=== PATIENT | male | born 1970 | race Caucasian/White ===

== ENCOUNTER 2022-09-18 09:53 | Emergency (ER) | payer OTHER, SELFPAY ==
--- NOTE | ~2022-09-18 | XR_ITS ---
EXAMINATION: XR CHEST CLINICAL INFORMATION: Cough. COMPARISON: None TECHNIQUE: Frontal view of the chest was obtained. FINDINGS: No focal airspace opacity, pleural effusion or pneumothorax. No significant cardiomediastinal contour abnormality. No acute osseous abnormalities. The visualized upper abdomen is within normal limits. XR/XR chest 1V IMPRESSION: No acute cardiopulmonary findings.
--- NOTE | 2022-09-18 10:06 | ECG_ITS ---
Test Reason : chest pain Blood Pressure : / mmHG Vent. Rate : 076 BPM Atrial Rate : 076 BPM P-R Int : 152 ms QRS Dur : 094 ms QT Int : 382 ms P-R-T Axes : 047 004 035 degrees QTc Int : 429 ms Normal sinus rhythm Septal infarct , age undetermined Abnormal ECG No previous ECGs available Referred By: Generic ED Physician Electronically Signed By:Avi Soares
[2022-09-18 11:00] VITALS: BP 116/75; PULSE 66; RESP 16; TEMP 36.4; O2SAT 99; BMI 31.7
[2022-09-18 11:27] LABS: MANUAL DIFF FLAG NO
[2022-09-18 11:28] LABS: Basophils Absolute Auto 0.1 X10*3/uL (0.0-0.2); Basophils Percent Auto 1.3 % (0-2); Eosinophils Absolute Auto 0.3 X10*3/uL (0.0-0.4); Eosinophils Percent Auto 5.6 % (0-4); Hemoglobin 14.9 g/dl (14.0-18.0); Imm Gran Abs Auto 0.03 X10*3/uL (0.00-0.03); Imm Gran Pct Auto 0.6 % (0.0-0.4); Lymphocytes Absolute Auto 1.4 X10*3/uL (1.2-4.9); Lymphocytes Percent Auto 26.7 % (20-40); Mean Corpuscular HGB Conc 33.9 g/dl (31.0-36.0); Mean Corpuscular Hemoglobin 30.2 pg (27.0-33.0); Mean Corpuscular Volume 89.1 fL (80.0-98.0); Mean Platelet Volume 8.9 fL (9.4-12.4); Monocytes Absolute Auto 0.4 X10*3/uL (0.1-1.2); Neutrophils Absolute Auto 3.1 x10*3/uL (2.0-8.3); Neutrophils Percent Auto 57.8 % (45-73); Platelet Count 239 X10*3/uL (160-400); Red Blood Count 4.94 X10*6/uL (4.60-5.80); Red Cell Distribution Width 12.9 % (11.0-16.0); White Blood Count 5.4 X10*3/uL (4.8-10.8)
[2022-09-18 11:54] LABS: B Type Natriuretic Peptide 16 pg/mL (<100)
[2022-09-18 12:21] LABS: Anion Gap 10 (12-20); Blood Urea Nitrogen 10 mg/dL (9-16); Calcium 8.7 mg/dL (8.4-10.2); Carbon Dioxide 29 mmol/L (22-29); Chloride 106 mmol/L (96-108); Creatinine Clr Calc Pharmacy 102.9; Estimated Glomerular Filt Rate > 60; Glucose Random 99 mg/dL (60-115); Potassium 4.3 mmol/L (3.3-5.1); Sodium 141 mmol/L (135-145)
--- NOTE | 2022-09-18 12:50 | PC.NURSE ---
Patient with primary complaint of bilateral leg pain non pitting edema and redness noted patient also complaint of chest pain not exacerbated with inspiration/expiration LS clear AOx 4 neuros intact. Patient ambulatory at baseline no confusion noted IV access obtained will CTM
[2022-09-18 13:51] LABS: COVID-19 Test Negative (Negative); IDNOW Serial# BCCEAD1C
[2022-09-18 13:59] LABS: Alanine Aminotransferase 23 U/L (0-40); Alkaline Phosphatase 77 U/L (39-117); Aspartate Amino Transferase 14 U/L (5-37); Bilirubin Direct 0.2 mg/dL (0.0-0.5); Bilirubin Total 0.5 mg/dL (0.0-1.0); Total Protein 6.7 g/dL (6.5-8.0)
--- NOTE | 2022-09-18 14:03 | ED_ITS ---
HPI - General Adult General Chief complaint: General Medical Stated complaint: Chest pain/SOB/Rash on both legs Time Seen by Provider: 09/18/22 12:47 Source: patient Mode of arrival: ambulatory History of Present Illness HPI narrative: 52-year-old male without significant past medical history presents with complaints of bilateral lower extremity swelling and significant lower extremity pain with itching that is been ongoing for approximately 6 months and not associated with any fevers, chills. Patient denies any alcohol or drug use. Patient also describes bilateral upper extremity tingling as well as shortness of breath and chest pain. He is currently being evaluated for prostate and has had biopsies approximately 2 weeks ago and has been placed on tamsulosin which is his only prescription medication. Related Data Allergies Allergy/AdvReac Type Severity Reaction Status Date / Time No Known Allergies Allergy Verified 09/18/22 10:59 Review of Systems Review of Systems: Pertinent positives and negatives as stated in [facility] Past Medical History Source: nursing notes reviewed Social History Social History Alcohol intake: current Alcohol intake frequency: 0-2 drinks per day Smoked in Last 30 Days: No Use of substances other than those prescribed or required for medical reasons: No Advance Directives: No Advance Directives Information Provided: Yes Physical Exam ED Vital Signs: Vital Signs - 24 hr 09/18/22 11:00 Temperature 97.5 F Pulse Rate 66 Respiratory Rate 16 Blood Pressure 116/75 Pulse Oximetry 99 Oxygen Delivery Method Room Air BMI result Body Mass Index 31.7 VITAL SIGNS: Reviewed. GENERAL: Well developed, well nourished, appears anxious HEAD: Normocephalic/atraumatic EYES: PERRLA, EOMI EARS: Ext canals without abnormality OROPHARYNX: no oral lesions noted, posterior pharynx clear NECK: Supple, no adenopathy LUNGS: Normal breath sounds. No adventitious sounds or accessory muscle use. SpO2<99> CARDIOVASCULAR: Regular rate and rhythm without noted murmurs ABDOMEN: Soft, non-tender, non-distended with bowel sounds. MUSCULOSKELETAL: No tenderness, deformities, or effusions noted on gross ins pection. EXTREMITIES: No cyanosis, clubbing or edema; BILATERAL LOWER EXTREMITY: Compartments are soft there is no pitting edema, there is obvious scratching to the anterior component. SKIN: Inspection of the skin reveals no rashes NEUROLOGIC: Alert and oriented x 4. Strength and sensation to light touch were grossly intact x 4. Medical Decision Making Medical Decision Making [facility] Narrative: 52-year-old male with what appears to be some anxiety, will evaluate with the expanse symptoms for any infection, anemia, electrolyte abnormalities. The rash to the bilateral lower extremities appears to be eczematous in nature. I have reviewed patient's entire workup and did my interpretation there are no acute findings to better explain patient's presentation. He does not appear to be overtly fluid overloaded, there are no cardiopulmonary findings or electrolyte abnormalities, CPK is within normal limits.All results discussed with patient at bedside and he is otherwise discharged home in stable condition with strict instructions to follow-up with his primary care provider for additional investigations as indicated. Differential Diagnosis Differential Diagnoses: The differential diagnosis associated with the presentation includes Please see the discussion above Lab Data [facility] Lab Attestation statement: I reviewed the patient's lab results. Please see discussion above 09/18/22 11:22 09/18/22 12:00 Labs: Lab Results 09/18/22 09/18/22 09/18/22 Range/Units 11:22 11:23 12:00 WBC 5.4 (4.8-10.8) X10*3/uL RBC 4.94 (4.60-5.80) X10*6/uL Hgb 14.9 (14.0-18.0) g/dl Hct 44.0 (42.0-52.0) % MCV 89.1 (80.0-98.0) fL MCH 30.2 (27.0-33.0) pg MCHC 33.9 (31.0-36.0) g/dl RDW 12.9 (11.0-16.0) % Plt Count 239 (160-400) X10*3/uL MPV 8.9 L (9.4-12.4) fL Immature Gran % (Auto) 0.6 H (0.0-0.4) % Neut % (Auto) 57.8 (45-73) % Lymph % (Auto) 26.7 (20-40) % [place] % (Auto) 8.0 (2-11) % Eos % (Auto) 5.6 H (0-4) % Baso % (Auto) 1.3 (0-2) % Lymph # (Auto) 1.4 (1.2-4.9) X10*3/uL [place] # (Auto) 0.4 (0.1-1.2) X10*3/uL Eos # (Auto) 0.3 (0.0-0.4) X10*3/uL Baso # (Auto) 0.1 (0.0-0.2) X10*3/uL Abs Immat Gran (auto) 0.03 (0.00-0.03) X10*3/uL Absolute Neuts (auto) 3.1 (2.0-8.3) x10*3/uL Absolute Nucleated RBC 0.000 (0.0-0.012) X10*3/uL Nucleated RBC % (auto) 0.0 (0.0-0.2) /100WBC Sodium 141 (135-145) mmol/L Potassium 4.3 (3.3-5.1) mmol/L Chloride 106 (96-108) mmol/L Carbon Dioxide 29 (22-29) mmol/L Anion Gap 10 L (12-20) BUN 10 (9-16) mg/dL Creatinine 0.82 (0.5-1.4) mg/dL Estim Creat Clear Calc 102.9 Estimated GFR > 60 Random Glucose 99 (60-115) mg/dL Calcium 8.7 (8.4-10.2) mg/dL Total Bilirubin 0.5 (0.0-1.0) mg/dL Direct Bilirubin 0.2 (0.0-0.5) mg/dL AST 14 (5-37) U/L ALT 23 (0-40) U/L Alkaline Phosphatase 77 (39-117) U/L Total Creatine Kinase 84 (38-174) U/L Troponin I High Sens (<3.5-35.0) ng/L B-Natriuretic Peptide 16 (<100) pg/mL Total Protein 6.7 (6.5-8.0) g/dL Albumin 4.0 (3.5-5.0) g/dL COVID-19 (JEANMARIE) (Negative) COVID-19 Clin Com 09/18/22 09/18/22 Range/Units 13:33 15:07 WBC (4.8-10.8) X10*3/uL RBC (4.60-5.80) X10*6/uL Hgb (14.0-18.0) g/dl Hct (42.0-52.0) % MCV (80.0-98.0) fL MCH (27.0-33.0) pg MCHC (31.0-36.0) g/dl RDW (11.0-16.0) % Plt Count (160-400) X10*3/uL MPV (9.4-12.4) fL Immature Gran % (Auto) (0.0-0.4) % Neut % (Auto) (45-73) % Lymph % (Auto) (20-40) % [place] % (Auto) (2-11) % Eos % (Auto) (0-4) % Baso % (Auto) (0-2) % Lymph # (Auto) (1.2-4.9) X10*3/uL [place] # (Auto) (0.1-1.2) X10*3/uL Eos # (Auto) (0.0-0.4) X10*3/uL Baso # (Auto) (0.0-0.2) X10*3/uL Abs Immat Gran (auto) (0.00-0.03) X10*3/uL Absolute Neuts (auto) (2.0-8.3) x10*3/uL Absolute Nucleated RBC (0.0-0.012) X10*3/uL Nucleated RBC % (auto) (0.0-0.2) /100WBC Sodium (135-145) mmol/L Potassium (3.3-5.1) mmol/L Chloride (96-108) mmol/L Carbon Dioxide (22-29) mmol/L Anion Gap (12-20) BUN (9-16) mg/dL Creatinine (0.5-1.4) mg/dL Estim Creat Clear Calc Estimated GFR Random Glucose (60-115) mg/dL Calcium (8.4-10.2) mg/dL Total Bilirubin (0.0-1.0) mg/dL Direct Bilirubin (0.0-0.5) mg/dL AST (5-37) U/L ALT (0-40) U/L Alkaline Phosphatase (39-117) U/L Total Creatine Kinase (38-174) U/L Troponin I High Sens < 3.5 (<3.5-35.0) ng/L B-Natriuretic Peptide (<100) pg/mL Total Protein (6.5-8.0) g/dL Albumin (3.5-5.0) g/dL COVID-19 (JEANMARIE) Negative (Negative) COVID-19 Clin Com See Note Independent Interpretation I performed an independent interpretation of an: EKG Interpretation: Normal sinus rhythm, HR-76, no STEMI, TN/QRS/QTC is within normal limits. Radiology Impression Radiologist Impression: My interpretation is in agreement with radiology's impression of the imaging study. Discharge Plan Discharge Clinical Impression: Localized swelling of both lower legs, Eczema Patient Disposition: Home, Self-Care Instructions: Eczema (ED), Leg Pain (ED) Additional Instructions: 1. Resume all home medications as prescribed. 2. Please review the information regarding eczema. 3. Please follow-up with your primary care provider in the next 1-2 days for re- evaluation and further outpatient management. Please return to the ER if there are any acute changes or additional symptoms.
--- NOTE | 2022-09-18 15:28 | PC.NURSE ---
assumed care of pt rates leg pain 03/28 denies chest pain aox4, no apparent distress, resting quietly pending trop result will CTM
[2022-09-18 15:38] LABS: Troponin-I High Sensitivity < 3.5 ng/L (<3.5-35.0)
--- NOTE | 2022-09-18 16:51 | PC.NURSE ---
discharge instructions given/explained, IV cath tip intact upon removal, ambulates safely/independently, no respiratory distress, able to speak in full sentences, all questions answered
== END 2022-09-18 16:51 | disposition home or self-care (01) ==
PROVIDERS: Emergency Medicine; Emergency Provider Student in an Organized Health Care Education/Training Program
DX: R22.43 Localized swelling, mass and lump, lower limb, bilateral (principal); L30.9 Dermatitis, unspecified; Z20.822 Contact with and (suspected) exposure to COVID-19; M79.605 Pain in left leg; M79.604 Pain in right leg; R06.02 Shortness of breath; Z79.899 Other long term (current) drug therapy
CPT/HCPCS: 36415; 71045; 80048; 80076; 82550; 83880; 84484; 85025; 87635; 93005; 99283; 99284

== ENCOUNTER 2023-03-10 10:28 | Inpatient (IN) | payer OTHER, SELFPAY ==
[2023-03-10] VITALS (7 sets, daily range): BP systolic 101–142; BP diastolic 58–90; PULSE 67–87; RESP 14–18; TEMP 36.5–37.3; O2SAT 97–99; BMI 28.2; BMI 29.0
--- NOTE | ~2023-03-10 | XR_ITS ---
EXAMINATION: XR CHEST CLINICAL INFORMATION: Chest pain. Shortness of breath. COMPARISON: Previous chest x-ray August 2022 TECHNIQUE: Frontal view of the chest was obtained. FINDINGS: No significant abnormality is noted involving the heart, lungs, mediastinum, bony thorax or soft tissues. XR/XR chest 1V IMPRESSION: Unremarkable examination.
--- NOTE | ~2023-03-10 | CT_ITS ---
EXAMINATION: CT ABDOMEN AND PELVIS WITH CONTRAST CLINICAL INFORMATION: Nausea, vomiting, change in bowel habits. COMPARISON: None available. TECHNIQUE: Multidetector volumetric images were obtained from the superior aspect of the liver through the pubic symphysis following administration 85 mL of Omnipaque 350 intravenous contrast. Coronal and sagittal reconstructions. Oral contrast: No. This CT examination was performed using dose optimization techniques as appropriate, variously including the following: *Automated exposure control *Adjustment of mA and/or kV according to patient size (this includes techniques or standardized protocols for targeted exams where dose is matched to indication/reason for exam; i.e. extremities or head) *Use of iterative reconstruction technique DLP: 512 mGy-cm FINDINGS: LUNG BASES: The visualized lung bases are unremarkable. LIVER, GALLBLADDER, AND BILIARY TREE: The liver is normal in size, shape, and attenuation. No focal hepatic lesion or biliary ductal dilatation is present. Status postcholecystectomy. CBD is of normal caliber. PANCREAS: Unremarkable. No acute inflammatory changes. SPLEEN: Unremarkable. ADRENAL GLANDS: Unremarkable. KIDNEYS AND URETERS: Mild right hydronephrosis. The ureter is nondilated. 2 mm nonobstructing calculus in the upper pole calyx. No radiopaque ureteral calculi is identified. Small hypodense lesion in the upper pole left kidney, statistically likely to be a cyst. No followup indicated. 2 mm lower pole nonobstructing calculus. No left-sided hydronephrosis. BLADDER: Unremarkable. GASTROINTESTINAL TRACT: Small hiatal hernia. Stomach is partially distended, limiting evaluation. No small or large bowel obstruction. The large colon is nondistended, limiting evaluation. Apparent wall thickening/prominence of the rectum and rectosigmoid region, with no significant surrounding inflammatory changes. This could be related to lack of distention, proctitis/colitis cannot be excluded. Scattered descending and sigmoid colon diverticulosis. No findings to suggest definite diverticulitis. No acute small bowel inflammatory changes evident. No free fluid. No free air. ABDOMINAL WALL: No significant hernia is appreciated. LYMPH NODES: No lymphadenopathy is identified. VASCULAR: Normal caliber aorta. PELVIC VISCERA: Within normal limits. OSSEOUS STRUCTURES: No acute or suspicious osseous abnormality. CT/CT abdomen pelvis w IV con IMPRESSION: 1. Apparent wall prominence of the rectum and rectosigmoid region, could be related to lack of distention. Proctitis/colitis cannot be excluded. Clinically correlate. Colonic diverticulosis without evidence of diverticulitis. Large colon is nondistended otherwise limiting evaluation. Followup imaging for reassessment as clinically warranted. 2. Mild right hydronephrosis. No radiopaque calculi. Etiology of the hydronephrosis has not been determined. 3. Status post cholecystectomy. 4. Small hiatal hernia. 5. Additional findings and details as above. Fleischner guidelines were followed.
--- NOTE | 2023-03-10 10:50 | ECG_ITS ---
Test Reason : ABDOMINAL PAIN Blood Pressure : / mmHG Vent. Rate : 070 BPM Atrial Rate : 070 BPM P-R Int : 160 ms QRS Dur : 094 ms QT Int : 378 ms P-R-T Axes : 042 022 040 degrees QTc Int : 408 ms Normal sinus rhythm Normal ECG When compared with ECG of 18-SEP-2022 10:20, No significant change was found Referred By: Diego Marie Electronically Signed By:BEE GO MD
--- NOTE | 2023-03-10 10:55 | ED.ABDPAIN ---
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 Patient rates pain greater than 10/10, appears uncomfortable upon history taking. 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 Also complaining of vague chest pain, substernal nonradiating shortness of breath that he contributes this to severe pain. Patient denies numbness, tingling, headache, vision changes, dizziness, weakness at this time. Related Data Home Medications Medication Instructions Recorded Confirmed acetaminophen 500 mg tablet 1,000 mg PO Q6H PRN Pain 03/10/23 03/10/23 mirabegron 50 mg tablet,extended 50 mg PO DAILY 03/10/23 03/10/23 release 24 hr (Myrbetriq) ondansetron HCl 8 mg tablet 8 mg PO BID PRN Nausea 03/10/23 03/10/23 prednisone 20 mg tablet 40 mg PO DAILY 03/10/23 03/10/23 semaglutide (weight loss) 1.7 1.7 mg subcut FR 03/10/23 03/10/23 mg/0.75 mL subcutaneous pen injector (Gamagovy) tamsulosin 0.4 mg capsule 0.4 mg PO DAILY 03/10/23 03/10/23 Previous Rx's Medication Instructions Recorded tramadol 100 mg tablet 100 mg PO Q6H PRN pain #16 tabs 03/12/23 Allergies Allergy/AdvReac Type Severity Reaction Status Date / Time No Known Allergies Allergy Verified 09/18/22 10:59 Review of Systems Review of Systems Constitutional : No Weight loss, + Fever, + Chills, + Fatigue, + Malaise ENT/Mouth : No sore throat, No Rhinorrhea Eyes: No Eye Pain, No Swelling, No Redness Cardiovascular : + Chest Pain, + SOB, No Dyspnea on Exertion, No Orthopnea, No Edema, No Palpitations Respiratory : No Cough, No Sputum, No Wheezing Gastrointestinal : + Nausea, + Vomiting, + Diarrhea, No Constipation, + abdominal Pain, No Hematochezia, No Melena Genitourinary : No Dysuria, No Urinary Frequency, No Hematuria, Musculoskeletal : No joint pain, No Myalgias, No Joint Swelling Skin : No Skin Lesions, No rash Neuro : No Weakness, No Numbness, No Dizziness, No Headache Psych : No Anxiety/Panic, No Depression All other systems reviewed and are negative Yes all other systems are reviewed and are negative COUNT INCLUDES THE [facility] Past Medical History Attestation statement: The following information was validated with the patient. Source: old records reviewed and nursing notes reviewed Medical History Dehydration History of BPH Pre-diabetes Surgical History History of appendectomy Hx of cholecystectomy Social History Social History Household Members Other:: fianc?, daughter Housing: House Do you presently have visiting nurse or other home services: No Alcohol intake: current Alcohol intake frequency: 0-2 drinks per day Patient Tobacco Use Status: Current everyday Tobacco user Tobacco use type: Smokeless Tobacco e-Cigarette/Vaping Use: Currently Using Second Hand Smoke Exposure: No service: No Physical Exam ED Vital Signs: Vital Signs - 24 hr 03/10/23 10:36 03/10/23 13:54 03/10/23 14:48 Temperature 98.0 F 99.1 F Pulse Rate 76 73 77 Respiratory Rate 16 16 14 Blood Pressure 142/75 H 108/65 101/65 Pulse Oximetry 99 97 98 Oxygen Delivery Method Room Air Room Air Room Air BMI result Body Mass Index 28.2 Vital signs stable Appearance: Alert.? Oriented X3.? No acute distress.? Patient appears uncomfortable. Head: Normocephalic, atraumatic, no step-offs or deformities Eyes: Pupils equal, round and reactive to light.? CVS: Normal heart rate and rhythm.? Pulses normal.? Respiratory: No respiratory distress.? Breath sounds normal.? Abdomen: Soft and diffusely tender abdomen. Nondistended. Normoactive bowel sounds. Patient guarding his abdomen..? Skin: Skin warm and dry.? Normal skin color.? Normal skin turgor.? Extremities: No lower extremity edema.? No calf ttp. 5/5 strength to bilateral upper and lower extremities Back: No midline tenderness, no C-spine tenderness, full range of motion, no CVA tenderness bilaterally Neuro: Oriented X 3.? No motor deficit.? No sensory deficit. CN 2-12 intact Course Reevaluation(s) Reevaluation #1: I just received a call from the lab stating patient's lactic acid critically elevated 4.1 , at this time infection suspected 30 cc/kilos bolus has been ordered as well as Zosyn. Remainder of labs pending at this time. CT scan and urine also pending. Time: 11:53 Reevaluation #2: CBC with slight leukocytosis 13.4 with left shift concerning for infection however could be reactive from nausea and vomiting, chemistry pending. Time: 12:10 Reevaluation #3: Patient's chemistry with elevated BUN likely secondary to dehydration. Lactic acid initially 4.1 he was given fluids, antibiotics and it improved to a 0.9. Troponin negative, EKG nonischemic unlikely ACS. CT abdomen and pelvis concerning for colitis versus proctitis, no rectal complaints. Mild right hydronephrosis. No calculi noted. Unclear etiology. Status post cholecystectomy. Small hiatal hernia. I did discuss this case with surgery due to patient's presentation, he is having severe abdominal pain still, general surgeon Dr. Richey recommends hospital admission with surgical consult. He recommends fluids. Discussed this case with hospitalist will admit patient. Time: 15:12 Medical Decision Making Medical Decision Making [facility] Narrative: 52-year-old male presents with nausea, vomiting, diarrhea, abdominal pain severe over the past 2 days but present for the past 2 weeks. Seen at [facility] for the same complaint. Physical exam significant for Soft and diffusely tender abdomen. Nondistended. Normoactive bowel sounds. Patient guarding his abdomen..? Concerns for mesenteric panniculitis based off patient history, possible appendicitis, diverticulitis, cholecystitis vs colitis. No signs of acute abdomen at this time. Unlikely obstruction. Unlikely mesenteric ischemia. Chest pain shortness of breath likely secondary to pain unlikely ACS, unlikely PE. Plan at this time labs, imaging, urine., EKG. Differential Diagnosis Differential Diagnoses: The differential diagnosis associated with the presentation includes Concerns for mesenteric panniculitis based off patient history, possible appendicitis, diverticulitis, cholecystitis vs colitis. No signs of acute abdomen at this time. Unlikely obstruction. Unlikely mesenteric ischemia. Chest pain shortness of breath likely secondary to pain unlikely ACS, unlikely PE. Admission/Observation Consideration of admission/observation: Escalation of care including admission/observation considered Possible Consult Healthcare Provider Management of the patient was discussed with: Hospitalist and Nondestructive Tester (General surgery ) Lab Data [facility] Lab Attestation statement: I reviewed the patient's lab results. 03/11/23 05:28 03/11/23 05:28 Labs: Lab Results 03/10/23 03/10/23 03/10/23 Range/Units 11:30 13:23 13:54 WBC 13.4 H (4.8-10.8) X10*3/uL RBC 5.00 (4.60-5.80) X10*6/uL Hgb 15.3 (14.0-18.0) g/dl Hct 45.1 (42.0-52.0) % MCV 90.2 (80.0-98.0) fL MCH 30.6 (27.0-33.0) pg MCHC 33.9 (31.0-36.0) g/dl RDW 14.0 (11.0-16.0) % Plt Count 316 D (160-400) X10*3/uL MPV 8.5 L (9.4-12.4) fL Immature Gran % (Auto) 0.6 H (0.0-0.4) % Neut % (Auto) 93.6 H (45-73) % Lymph % (Auto) 3.8 L (20-40) % [place] % (Auto) 1.7 L (2-11) % Eos % (Auto) 0.1 (0-4) % Baso % (Auto) 0.2 (0-2) % Lymph # (Auto) 0.5 L (1.2-4.9) X10*3/uL [place] # (Auto) 0.2 (0.1-1.2) X10*3/uL Eos # (Auto) 0.0 (0.0-0.4) X10*3/uL Baso # (Auto) 0.0 (0.0-0.2) X10*3/uL Abs Immat Gran (auto) 0.08 H (0.00-0.03) X10*3/uL Absolute Neuts (auto) 12.5 H (2.0-8.3) x10*3/uL Absolute Nucleated RBC 0.000 (0.0-0.012) X10*3/uL Nucleated RBC % (auto) 0.0 (0.0-0.2) /100WBC Smear Tech's Comments VERIFIED Lactic Acid 4.1 H* (0.5-2.0) mmol/L Lactic Acid F/U @ 2Hr 0.9 (0.5-2.0) mmol/L Troponin I High Sens < 2.7 (<3.5-35.0) ng/L Urine Color Yellow Urine Appearance Clear Urine pH 7.5 (5.0-9.0) Ur Specific [place] >= 1.030 H (1.005-1.025) Urine Protein Negative (Neg-Trace) mg/dL Urine Glucose (UA) Negative (Negative) mg/dL Urine Ketones Negative (Negative) mg/dL Urine Blood Small (1+) H (Negative) Urine Nitrite Negative (Negative) Ur Leukocyte Esterase Negative (Negative) Urine RBC 11-20 H (0-2) /HPF Urine WBC 0-5 (0-5) /HPF Ur Squamous Epith Cells 0-2 (0-2) /HPF Urine Bacteria None Seen (None Seen) Hyaline Casts 0-2 (0-2) /LPF Urine Opiates Screen POSITIVE H (Not Detect) Urine Fentanyl Screen Not Detected (Not Detect) Ur Barbiturates Screen Not Detected (Not Detect) Ur Phencyclidine Scrn Not Detected (Not Detect) Ur Amphetamines Screen Not Detected (Not Detect) U Benzodiazepines Scrn Not Detected (Not Detect) Urine Cocaine Screen Not Detected (Not Detect) U Marijuana (THC) Screen Not Detected (Not Detect) Independent Interpretation I performed an independent interpretation of an: EKG (Ventricular rate of 70, CO normal, QRS normal, QT/QTC normal. EKG normal sinus rhythm no ST elevations or inversions concerning for acute ischemia) and CT Scan (CT/CT abdomen pelvis w IV con IMPRESSION: 1. Apparent wall prominence of the rectum and rectosigmoid region, could be related to lack of distention. Proctitis/colitis cannot be excluded. Clinically correlate. Colonic diverticulosis without evidence of diverticulitis. Large colon is nondistended othe) Radiology Impression Discussion of test interpretation with radiology: I have reviewed the radiologist's reading. Core Measures AMI core measures followed: Yes Measure exclusions: not indicated Medications Administered Discontinued Medications Generic Name Dose Route Start Last Admin Trade Name Freq PRN Reason Stop Dose Admin Acetaminophen 650 mg 03/10/23 15:36 03/11/23 17:04 Acetaminophen 325 Mg Tablet PO 650 mg Q6H PRN Administration Pain, Mild (Pain Scale 1-3) Enoxaparin Sodium 40 mg 03/10/23 17:00 03/11/23 17:04 Enoxaparin Sodium 40 Mg/0.4 Ml Syringe SUBCUT 40 mg Q24H TIKA Administration Hydromorphone HCl 0.5 mg 03/10/23 12:47 03/10/23 12:47 Hydromorphone Hcl 0.5 Mg/0.5 Ml Syringe IVPUSH 03/10/23 12:48 0.5 mg ONCE ONE Administration Protocol Hydromorphone HCl 1 mg 03/11/23 10:42 03/12/23 09:16 Hydromorphone Hcl 1 Mg/Ml Syringe IVPUSH 1 mg Q4H PRN Administration Pain, Severe (Pain Scale 7-10) Protocol Sodium Chloride 2,235 mls @ 2,235 mls/hr 03/10/23 11:52 03/10/23 13:40 Ns 30 ml/kg infuse over 1 hr (2235 ml) 03/10/23 12:51 Infused IV Infusion .Q1H STA Piperacillin Sod/Tazobactam 50 mls @ 100 mls/hr 03/10/23 11:52 03/10/23 19:12 Sod 3.375 gm/ Sodium Chloride IV 03/10/23 12:21 Infused ONCE ONE Infusion Piperacillin Sod/Tazobactam 50 mls @ 100 mls/hr 03/10/23 18:00 03/12/23 06:38 Sod 3.375 gm/ Sodium Chloride IV Infused Q6H TIKA Infusion Sodium Chloride 1,000 mls @ 100 mls/hr 03/10/23 16:45 03/11/23 12:44 Ns IVCONT Infused .Q10H TIKA Infusion Dextrose/Sodium Chloride 1,000 mls @ 100 mls/hr 03/11/23 11:45 03/12/23 08:09 D5ns IVCONT Not Given .Q10H [facility] Insulin Human Lispro 0 unit 03/10/23 21:00 03/12/23 07:46 Insulin Lispro 100 Unit/Ml 3 Ml Vial SUBCUT Not Given QIDACHS [facility] Protocol Iohexol 85 ml 03/10/23 12:51 03/10/23 12:51 Iohexol 350 Mg/Ml 75 Ml Infus..Btl IV 03/10/23 12:52 85 ml ONCE ONE Administration Melatonin 6 mg 03/10/23 19:44 03/11/23 22:34 Melatonin 3 Mg Tablet PO 6 mg BEDTIME PRN Administration Insomnia Mirabegron 50 mg 03/11/23 20:10 03/12/23 09:09 Mirabegron 50 Mg Tab.Er.24h PO 50 mg DAILY TIKA Administration Morphine Sulfate 4 mg 03/10/23 10:50 03/10/23 11:38 Morphine Sulfate 4 Mg/Ml Cartridge IVPUSH 03/10/23 10:51 4 mg ONCE ONE Administration Protocol Morphine Sulfate 2 mg 03/10/23 15:36 03/11/23 05:52 Morphine Sulfate 4 Mg/Ml Cartridge IVPUSH 2 mg Q4H PRN Administration Pain, Severe (Pain Scale 7-10) Protocol Ondansetron HCl 4 mg 03/10/23 10:50 03/10/23 11:38 Ondansetron Hcl 4 Mg/2 Ml Vial IVPUSH 03/10/23 10:51 4 mg ONCE ONE Administration Ondansetron HCl 4 mg 03/10/23 15:36 03/11/23 05:52 Ondansetron Hcl 4 Mg/2 Ml Vial IVPUSH 4 mg Q8H PRN Administration Nausea and Vomiting Oxycodone HCl 5 mg 03/10/23 16:41 03/10/23 21:43 Oxycodone Hcl Immed Release 5 Mg Tablet PO 5 mg Q4H PRN Administration abdominal pain Prednisone 40 mg 03/12/23 09:00 03/12/23 09:09 Prednisone 20 Mg Tablet PO 40 mg DAILY TIKA Administration Sodium Biphosphate/Sodium Phosphate 133 ml 03/11/23 14:00 03/11/23 14:02 Sodium Phosphate,[place]-Dibasic 133 Ml Enema CO 133 ml ONCE PRN Administration Pre-Op Surgical Prep Sodium Chloride 3 ml 03/10/23 16:00 03/12/23 09:09 0.9 % Sodium Chloride Flush 3 Ml Syringe IVFLUSH 3 ml QSHIFT TIKA Administration Tamsulosin HCl 0.4 mg 03/11/23 20:10 03/12/23 09:09 Tamsulosin Hcl 0.4 Mg Capsule PO 0.4 mg DAILY TIKA Administration Critical Care Time Critical Care Time Critical Care Time: Yes Total Critical Care Time: 45 Attestation: I attest to this time spent taking care of the patient, obtaining history, physical, reviewing labs, imaging, speaking to my attending, speaking to specialist. Discharge Plan Discharge Clinical Impression: Abdominal pain, Nausea & vomiting, Diarrhea Patient Disposition: Admitted As Inpatient Interventions: Admission Worksheet (ED) Last Done: 03/10/23 18:30 Discharge Date/Time: 03/10/23 17:50
[2023-03-10 11:38] LABS: Basophils Percent Auto 0.2 % (0-2); Eosinophils Percent Auto 0.1 % (0-4); Hematocrit 45.1 % (42.0-52.0); Hemoglobin 15.3 g/dl (14.0-18.0); Imm Gran Abs Auto 0.08 X10*3/uL (0.00-0.03); Imm Gran Pct Auto 0.6 % (0.0-0.4); Lymphocytes Absolute Auto 0.5 X10*3/uL (1.2-4.9); Lymphocytes Percent Auto 3.8 % (20-40); MANUAL DIFF FLAG SCAN; Mean Corpuscular HGB Conc 33.9 g/dl (31.0-36.0); Mean Corpuscular Hemoglobin 30.6 pg (27.0-33.0); Mean Corpuscular Volume 90.2 fL (80.0-98.0); Mean Platelet Volume 8.5 fL (9.4-12.4); Monocytes Absolute Auto 0.2 X10*3/uL (0.1-1.2); Monocytes Percent Auto 1.7 % (2-11); Neutrophils Absolute Auto 12.5 x10*3/uL (2.0-8.3); Neutrophils Percent Auto 93.6 % (45-73); SCAN SMEAR FLAG 1; White Blood Count 13.4 X10*3/uL (4.8-10.8)
[2023-03-10] MEDS: Morphine Sulfate 4 MG/ML CARTRIDGE IVPUSH (11:38)
[2023-03-10] MEDS: ondansetron HCL 4 MG/2 ML VIAL IVPUSH (11:38)
[2023-03-10 11:52] LABS: Lactic Acid 4.1 mmol/L (0.5-2.0)
[2023-03-10 11:56] LABS: Platelet Count 316 X10*3/uL (160-400)
[2023-03-10 11:57] LABS: SLIDE REVIEW VERIFIED
[2023-03-10 12:09] LABS: Troponin-I High Sensitivity < 2.7 ng/L (<3.5-35.0)
[2023-03-10] MEDS: Piperacillin Sodium/Tazobactam 3.375 GM in 0.9 % Sodium Chloride 50 ML IV ×3 (12:14→23:40)
[2023-03-10 12:22] LABS: Alanine Aminotransferase 22 U/L (0-40); Albumin Level 4.3 g/dL (3.5-5.0); Alkaline Phosphatase 70 U/L (39-117); Anion Gap 15 (12-20); Aspartate Amino Transferase 13 U/L (5-37); Bilirubin Total 0.5 mg/dL (0.0-1.0); Blood Urea Nitrogen 17 mg/dL (9-16); Calcium 9.5 mg/dL (8.4-10.2); Carbon Dioxide 25 mmol/L (22-29); Chloride 106 mmol/L (96-108); Creatinine Clr Calc Pharmacy 81.4; Estimated Glomerular Filt Rate > 60; Ethanol < 10 mg/dL; Glucose Random 116 mg/dL (60-115); Lipase 36 U/L (8-78); Magnesium 2.3 mg/dL (1.6-2.6); Potassium 3.6 mmol/L (3.3-5.1); Sodium 142 mmol/L (135-145); Total Protein 7.5 g/dL (6.5-8.0)
[2023-03-10] MEDS: HYDROmorphone HCl 0.5 MG/0.5 ML SYRINGE IVPUSH (12:47)
[2023-03-10] MEDS: iohexoL 350 MG/ML 75 ML INFUS..BTL 85 ML IV (12:51)
[2023-03-10 13:31] LABS: Appearance Urine Clear; Color Urine Yellow; Glucose Urine UA Negative (Negative); Leukocyte Esterase Urine Negative (Negative); Nitrite Urine Negative (Negative); PH 7.5 (5.0-9.0); Specific Gravity - Urine >= 1.030 (1.005-1.025); UMIC TRIGGER UACC YES; Urine Blood Small (1+) (Negative); Urine Ketones Negative (Negative); Urine Protein Negative (Neg-Trace)
[2023-03-10 13:35] LABS: Reflex Lactate? Lactic Acid Added
[2023-03-10 13:36] LABS: Bacteria Urine None Seen (None Seen); Hyaline Casts Urine 0-2 /LPF (0-2); Squamous Epithelial Cell Urine 0-2 /HPF (0-2); WBC Urine 0-5 /HPF (0-5)
[2023-03-10 13:43] LABS: Amphetamine Screen Urine Not Detected (Not Detect); Barbiturates, Urine Not Detected (Not Detect); Benzodiazepines Screen Urine Not Detected (Not Detect); Cannabinoid Screen Urine Not Detected (Not Detect); Cocaine Screen Urine Not Detected (Not Detect); Fentanyl, urine Not Detected (Not Detect); Opiate Screen Urine POSITIVE (Not Detect); Phencyclidine Screen Urine Not Detected (Not Detect)
[2023-03-10 14:15] LABS: ~Lactic Acid-LAB USE ONLY 0.9 mmol/L (0.5-2.0)
--- NOTE | 2023-03-10 15:17 | PM.CNGS ---
History of Present Illness Consult details Consult date: 03/10/23 Narrative: 52M here in the ED for abdominal pain. He says that he has had this for over a month. He describes this as diffuse and crampy. He says he has had episodes of nausea and vomitting along with loose stools throughout the month. He wenrt to the ED in [facility] last February 25 for the above complaints. 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 He was discharged from the ED there and instructed to see a Electrical Wirer. He was started on Prednisone but he says this really has not helped much. He had a multiple episodes of vomitting last night, and says his pain episode was worse this morning. He continues to have loose stools. He denies fever or chills. Review of Systems Constitutional: Constitutional: Denies chills and Denies fever(s) Cardiovascular: Cardiovascular: Denies chest pain and Denies dyspnea on exertion Respiratory: Respiratory: Denies cough and Denies dyspnea on exertion Gastrointestinal: Gastrointestinal: Denies hematochezia, Reports diarrhea and Reports vomiting Genitourinary: Genitourinary: Denies difficulty urinating Musculoskeletal: Musculoskeletal: Denies back pain PMFSH Past Medical History Medical History Dehydration History of BPH Pre-diabetes Surgical History Surgical History History of appendectomy Hx of cholecystectomy Social History Social History Household Members Other:: fianc?, daughter Housing: House Do you presently have visiting nurse or other home services: No Alcohol intake: current Alcohol intake frequency: 0-2 drinks per day Patient Tobacco Use Status: Current everyday Tobacco user Tobacco use type: Smokeless Tobacco e-Cigarette/Vaping Use: Currently Using Second Hand Smoke Exposure: No service: No Meds Allergies Allergy/AdvReac Type Severity Reaction Status Date / Time No Known Allergies Allergy Verified 09/18/22 10:59 Active Medications: Current Medications Pharmacy Consult (Consult Rx Perform Med Rec) 1 each MISCELLANE ONCE PRN PRN Reason: Consult order Home Medications Medication Instructions Recorded Confirmed Last Taken Type acetaminophen 500 mg tablet 1,000 mg PO Q6H PRN Pain 03/10/23 03/10/23 Unknown History mirabegron 50 mg tablet,extended 50 mg PO DAILY 03/10/23 03/10/23 Unknown History release 24 hr (Myrbetriq) ondansetron HCl 8 mg tablet 8 mg PO BID PRN Nausea 03/10/23 03/10/23 Unknown History prednisone 20 mg tablet 40 mg PO DAILY 03/10/23 03/10/23 Unknown History semaglutide (weight loss) 1.7 1.7 mg subcut FR 03/10/23 03/10/23 03/08/23 History mg/0.75 mL subcutaneous pen injector (Travis) tamsulosin 0.4 mg capsule 0.4 mg PO DAILY 03/10/23 03/10/23 Unknown History Physical Exam Vital Signs: Vital Signs: Last Vital Signs Temp 99.1 F 03/10/23 14:48 Pulse 77 03/10/23 14:48 Resp 14 03/10/23 14:48 BP 101/65 03/10/23 14:48 Pulse Ox 98 03/10/23 14:48 O2 Del Method Room Air 03/10/23 14:48 BMI result Body Mass Index 28.2 Const: Other: anxious-looking General: no acute distress Resp: Effort & Inspection: normal respiratory effort Cardio: Rate: regular rate Rhythm: regular rhythm GI: Palpation (GI): Soft to palpation, not firm, Tenderness to palpation present (GI) (diffusely) and no guarding Results Labs 03/10/23 11:30 03/10/23 Unknown Labs: Abnormal lab results 03/10/23 03/10/23 03/10/23 Range/Units 11:30 11:30 13:23 WBC 13.4 H (4.8-10.8) X10*3/uL MPV 8.5 L (9.4-12.4) fL Immature Gran % (Auto) 0.6 H (0.0-0.4) % Neut % (Auto) 93.6 H (45-73) % Lymph % (Auto) 3.8 L (20-40) % [place] % (Auto) 1.7 L (2-11) % Lymph # (Auto) 0.5 L (1.2-4.9) X10*3/uL Abs Immat Gran (auto) 0.08 H (0.00-0.03) X10*3/uL Absolute Neuts (auto) 12.5 H (2.0-8.3) x10*3/uL BUN (9-16) mg/dL Random Glucose (60-115) mg/dL Lactic Acid 4.1 H* (0.5-2.0) mmol/L Ur Specific [place] >= 1.030 H (1.005-1.025) Urine Blood Small (1+) H (Negative) Urine RBC 11-20 H (0-2) /HPF Urine Opiates Screen (Not Detect) 03/10/23 03/10/23 Range/Units 13:23 Unknown WBC (4.8-10.8) X10*3/uL MPV (9.4-12.4) fL Immature Gran % (Auto) (0.0-0.4) % Neut % (Auto) (45-73) % Lymph % (Auto) (20-40) % [place] % (Auto) (2-11) % Lymph # (Auto) (1.2-4.9) X10*3/uL Abs Immat Gran (auto) (0.00-0.03) X10*3/uL Absolute Neuts (auto) (2.0-8.3) x10*3/uL BUN 17 H (9-16) mg/dL Random Glucose 116 H (60-115) mg/dL Lactic Acid (0.5-2.0) mmol/L Ur Specific [place] (1.005-1.025) Urine Blood (Negative) Urine RBC (0-2) /HPF Urine Opiates Screen POSITIVE H (Not Detect) Short CBC 03/10/23 Range/Units 11:30 WBC 13.4 H (4.8-10.8) X10*3/uL Hgb 15.3 (14.0-18.0) g/dl Hct 45.1 (42.0-52.0) % Plt Count 316 D (160-400) X10*3/uL BMP 03/10/23 Unknown Sodium 142 Potassium 3.6 Chloride 106 Carbon Dioxide 25 BUN 17 H Creatinine 0.98 Calcium 9.5 D Cardiac Enzymes 03/10/23 Range/Units Unknown Total Creatine Kinase 49 (38-174) U/L Liver Function 03/10/23 Range/Units Unknown Total Bilirubin 0.5 (0.0-1.0) mg/dL AST 13 (5-37) U/L ALT 22 (0-40) U/L Alkaline Phosphatase 70 (39-117) U/L Albumin 4.3 (3.5-5.0) g/dL Urine 03/10/23 Range/Units 13:23 Urine Color Yellow Urine Appearance Clear Urine pH 7.5 (5.0-9.0) Ur Specific [place] >= 1.030 H (1.005-1.025) Urine Protein Negative (Neg-Trace) mg/dL Urine Glucose (UA) Negative (Negative) mg/dL All other labs normal. Laboratory Results WBC 13.4 X10*3/uL (4.8-10.8) H 03/10/23 11:30 RBC 5.00 X10*6/uL (4.60-5.80) 03/10/23 11:30 Hgb 15.3 g/dl (14.0-18.0) 03/10/23 11:30 Hct 45.1 % (42.0-52.0) 03/10/23 11:30 MCV 90.2 fL (80.0-98.0) 03/10/23 11:30 MCH 30.6 pg (27.0-33.0) 03/10/23 11:30 MCHC 33.9 g/dl (31.0-36.0) 03/10/23 11:30 RDW 14.0 % (11.0-16.0) 03/10/23 11:30 Plt Count 316 X10*3/uL (160-400) D 03/10/23 11:30 MPV 8.5 fL (9.4-12.4) L 03/10/23 11:30 Immature Gran % (Auto) 0.6 % (0.0-0.4) H 03/10/23 11:30 Neut % (Auto) 93.6 % (45-73) H 03/10/23 11:30 Lymph % (Auto) 3.8 % (20-40) L 03/10/23 11:30 [place] % (Auto) 1.7 % (2-11) L 03/10/23 11:30 Eos % (Auto) 0.1 % (0-4) 03/10/23 11:30 Baso % (Auto) 0.2 % (0-2) 03/10/23 11:30 Lymph # (Auto) 0.5 X10*3/uL (1.2-4.9) L 03/10/23 11:30 [place] # (Auto) 0.2 X10*3/uL (0.1-1.2) 03/10/23 11:30 Eos # (Auto) 0.0 X10*3/uL (0.0-0.4) 03/10/23 11:30 Baso # (Auto) 0.0 X10*3/uL (0.0-0.2) 03/10/23 11:30 Abs Immat Gran (auto) 0.08 X10*3/uL (0.00-0.03) H 03/10/23 11:30 Absolute Neuts (auto) 12.5 x10*3/uL (2.0-8.3) H 03/10/23 11:30 Absolute Nucleated RBC 0.000 X10*3/uL (0.0-0.012) 03/10/23 11:30 Nucleated RBC % (auto) 0.0 /100WBC (0.0-0.2) 03/10/23 11:30 Smear Tech's Comments VERIFIED 03/10/23 11:30 Sodium 142 mmol/L (135-145) 03/10/23 Unknown Potassium 3.6 mmol/L (3.3-5.1) 03/10/23 Unknown Chloride 106 mmol/L (96-108) 03/10/23 Unknown Carbon Dioxide 25 mmol/L (22-29) 03/10/23 Unknown Anion Gap 15 (12-20) 03/10/23 Unknown BUN 17 mg/dL (9-16) H 03/10/23 Unknown Creatinine 0.98 mg/dL (0.5-1.4) 03/10/23 Unknown Estim Creat Clear Calc 81.4 03/10/23 Unknown Estimated GFR > 60 03/10/23 Unknown Random Glucose 116 mg/dL (60-115) H 03/10/23 Unknown Lactic Acid 4.1 mmol/L (0.5-2.0) H* 03/10/23 11:30 Lactic Acid F/U @ 2Hr 0.9 mmol/L (0.5-2.0) 03/10/23 13:54 Calcium 9.5 mg/dL (8.4-10.2) D 03/10/23 Unknown Magnesium 2.3 mg/dL (1.6-2.6) 03/10/23 Unknown Total Bilirubin 0.5 mg/dL (0.0-1.0) 03/10/23 Unknown AST 13 U/L (5-37) 03/10/23 Unknown ALT 22 U/L (0-40) 03/10/23 Unknown Alkaline Phosphatase 70 U/L (39-117) 03/10/23 Unknown Total Creatine Kinase 49 U/L (38-174) 03/10/23 Unknown Troponin I High Sens < 2.7 ng/L (<3.5-35.0) 03/10/23 11:30 Total Protein 7.5 g/dL (6.5-8.0) 03/10/23 Unknown Albumin 4.3 g/dL (3.5-5.0) 03/10/23 Unknown Lipase 36 U/L (8-78) 03/10/23 Unknown Urine Color Yellow 03/10/23 13:23 Urine Appearance Clear 03/10/23 13:23 Urine pH 7.5 (5.0-9.0) 03/10/23 13:23 Ur Specific [place] >= 1.030 (1.005-1.025) H 03/10/23 13:23 Urine Protein Negative mg/dL (Neg-Trace) 03/10/23 13:23 Urine Glucose (UA) Negative mg/dL (Negative) 03/10/23 13:23 Urine Ketones Negative mg/dL (Negative) 03/10/23 13:23 Urine Blood Small (1+) (Negative) H 03/10/23 13:23 Urine Nitrite Negative (Negative) 03/10/23 13:23 Ur Leukocyte Esterase Negative (Negative) 03/10/23 13:23 Urine RBC 11-20 /HPF (0-2) H 03/10/23 13:23 Urine WBC 0-5 /HPF (0-5) 03/10/23 13:23 Ur Squamous Epith Cells 0-2 /HPF (0-2) 03/10/23 13:23 Urine Bacteria None Seen (None Seen) 03/10/23 13:23 Hyaline Casts 0-2 /LPF (0-2) 03/10/23 13:23 Urine Opiates Screen POSITIVE (Not Detect) H 03/10/23 13:23 Urine Fentanyl Screen Not Detected (Not Detect) 03/10/23 13:23 Ur Barbiturates Screen Not Detected (Not Detect) 03/10/23 13:23 Ur Phencyclidine Scrn Not Detected (Not Detect) 03/10/23 13:23 Ur Amphetamines Screen Not Detected (Not Detect) 03/10/23 13:23 U Benzodiazepines Scrn Not Detected (Not Detect) 03/10/23 13:23 Urine Cocaine Screen Not Detected (Not Detect) 03/10/23 13:23 U Marijuana (THC) Screen Not Detected (Not Detect) 03/10/23 13:23 Ethyl Alcohol < 10 mg/dL 03/10/23 Unknown Impressions Chest X-Ray 03/10/23 11:52 IMPRESSION: Unremarkable examination. Abdomen/Pelvis CT 03/10/23 12:51 IMPRESSION: 1. Apparent wall prominence of the rectum and rectosigmoid region, could be related to lack of distention. Proctitis/colitis cannot be excluded. Clinically correlate. Colonic diverticulosis without evidence of diverticulitis. Large colon is nondistended otherwise limiting evaluation. Followup imaging for reassessment as clinically warranted. 2. Mild right hydronephrosis. No radiopaque calculi. Etiology of the hydronephrosis has not been determined. 3. Status post cholecystectomy. 4. Small hiatal hernia. 5. Additional findings and details as above. Fleischner guidelines were followed. Assessment and Plan (1) Abdominal pain: Status: Acute HE has had diffuse abdominal pain, vomitting and diarrhea, all of which have been ongoing for over a month. He had severe episdoes earlier today. His exam is otherwise benign although he describes abdominal pain and tenderness. I have reviewed his CT scan. This seems to be underwhelmign considering his chronic symptoms. There may be some thickening of the rectosigmoid c/w colitis but I am not certain if this is enough to explain all his symptoms. His lactate was 4 intiially but this went down to 0 .9, c/w dehydration from fluid losses. He should continue to be hydrated. He should be placed on bowel rest for now, but ok to have clear liquids. He needs stools studies and I recommend input from Gastroenterology. I will follow along while he is in the hospital. I have explained to him the plan. (2) Dehydration: Status: Acute Time Spent With Patient Time: Total time managing care of this patient today ____ minutes. Procedures Date of Service Date of Service: 03/13/23
--- NOTE | 2023-03-10 15:23 | PM.IMHP ---
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 Also reports profuse diarrhea without blood. He denied chest pain, sob, recent travel, sick contacts. Labs all within acceptable limits, vital sign stable. He received a dose of Zosyn in the ED as well as morphine and IV fluids. He will be admitted further management and treatment colitis. <Christina Fatima NP - Last Filed: 03/11/23 09:39> Review of Systems Review of Systems: Denies any recent fever chills or decrease in appetite respiratory denies any shortness of breath coverage production cardiovascular denies chest pain gastrointestinal see HPI genitourinary denies any dysuria frequency or hematuria musculoskeletal denies any joint pain or swelling neuropsych denies any weakness or seizures all other systems reviewed are negative <Christina Fatima NP - Last Filed: 03/11/23 09:39> [facility] Medical History: Medical History (Updated 03/11/23 @ 08:05 by Jude Rasheed MD) Dehydration History of BPH Pre-diabetes <Christina Fatima NP - Last Filed: 03/11/23 09:39> Pertinent family history: mother breast cancer, CAD <Christina Fatima NP - Last Filed: 03/11/23 09:39> Surgical History: Surgical History (Updated 03/10/23 @ 16:39 by Christina Fatima NP) History of appendectomy Hx of cholecystectomy <Christina Fatima NP - Last Filed: 03/11/23 09:39> Social History: Social History Household Members Other:: fianc?, daughter Housing: House Do you presently have visiting nurse or other home services: No Alcohol intake: current Alcohol intake frequency: 0-2 drinks per day Patient Tobacco Use Status: Current everyday Tobacco user Tobacco use type: Smokeless Tobacco e-Cigarette/Vaping Use: Currently Using Frequency of e-Cigarette/Vaping Use: All the time Patient Interested in Nicotine Replacement: Yes Patient Given Instructions on How to Stop Smoking: Yes Date Education Initiated: 03/10/23 Second Hand Smoke Exposure: No Use of substances other than those prescribed or required for medical reasons: No Currently Displaying Signs/Symptoms of Drug Intoxication Withdrawal: No Have you been hit, kicked, punched, or otherwise hurt by someone within the past year? If so, by whom?: No Do you feel safe in your current relationship?: Yes Is there a partner from a previous relationship who is making you feel unsafe now?: No Are you made to feel afraid or neglected: No [facility] Practices: Confucianism Advance Directives: No Advance Directives Information Provided: Yes Advance Directives on File: No Do you have thoughts of harming others: None Recently lost weight without trying: Yes How much weight loss: 24-33 pounds Eating poorly because of decreased appetite: Yes Nutrition screen score: 6 Nutrition Risks: No Nutritional Risk Poor oral hygiene: No <Christina Fatima NP - Last Filed: 03/11/23 09:39> Meds Allergies/Adverse reactions: Allergies Allergy/AdvReac Type Severity Reaction Status Date / Time No Known Allergies Allergy Verified 09/18/22 10:59 <Christina Fatima NP - Last Filed: 03/11/23 09:39> Active Medications: Current Medications Pharmacy Consult (Consult Rx Perform Med Rec) 1 each MISCELLANE ONCE PRN PRN Reason: Consult order <Christina Fatima NP - Last Filed: 03/11/23 09:39> Home medications: Home Medications Medication Instructions Recorded Confirmed Last Taken Type acetaminophen 500 mg tablet 1,000 mg PO Q6H PRN Pain 03/10/23 03/10/23 Unknown History mirabegron 50 mg tablet,extended 50 mg PO DAILY 03/10/23 03/10/23 Unknown History release 24 hr (Myrbetriq) ondansetron HCl 8 mg tablet 8 mg PO BID PRN Nausea 03/10/23 03/10/23 Unknown History prednisone 20 mg tablet 40 mg PO DAILY 03/10/23 03/10/23 Unknown History semaglutide (weight loss) 1.7 1.7 mg subcut FR 03/10/23 03/10/23 03/08/23 History mg/0.75 mL subcutaneous pen injector (Travis) tamsulosin 0.4 mg capsule 0.4 mg PO DAILY 03/10/23 03/10/23 Unknown History <Christina Fatima NP - Last Filed: 03/11/23 09:39> Physical Exam Vital Signs and Narrative: Vital Signs: Last Vital Signs Temp 99.1 F 03/10/23 14:48 Pulse 77 03/10/23 14:48 Resp 14 03/10/23 14:48 BP 101/65 03/10/23 14:48 Pulse Ox 98 03/10/23 14:48 O2 Del Method Room Air 03/10/23 14:48 BMI result Body Mass Index 28.2 <Christina Fatima NP - Last Filed: 03/11/23 09:39> Results Labs CBC and Chem 7: 03/10/23 11:30 03/10/23 Unknown <Christina Fatima NP - Last Filed: 03/11/23 09:39> Labs: Laboratory Results - last 24 hr 03/10/23 03/10/23 03/10/23 11:30 11:30 11:30 MCV 90.2 MCH 30.6 MCHC 33.9 RDW 14.0 Plt Count 316 D MPV 8.5 L Immature Gran % (Auto) 0.6 H Neut % (Auto) 93.6 H Lymph % (Auto) 3.8 L [place] % (Auto) 1.7 L Eos % (Auto) 0.1 Baso % (Auto) 0.2 Lymph # (Auto) 0.5 L [place] # (Auto) 0.2 Eos # (Auto) 0.0 Baso # (Auto) 0.0 Abs Immat Gran (auto) 0.08 H Absolute Neuts (auto) 12.5 H Absolute Nucleated RBC 0.000 Nucleated RBC % (auto) 0.0 Smear Tech's Comments VERIFIED Anion Gap Estim Creat Clear Calc Estimated GFR Random Glucose Lactic Acid 4.1 H* Lactic Acid F/U @ 2Hr Calcium Magnesium Total Bilirubin AST ALT Alkaline Phosphatase Total Creatine Kinase Troponin I High Sens < 2.7 Total Protein Albumin Lipase Urine Color Urine Appearance Urine pH Ur Specific [place] Urine Protein Urine Glucose (UA) Urine Ketones Urine Blood Urine Nitrite Ur Leukocyte Esterase Urine RBC Urine WBC Ur Squamous Epith Cells Urine Bacteria Hyaline Casts Urine Opiates Screen Urine Fentanyl Screen Ur Barbiturates Screen Ur Phencyclidine Scrn Ur Amphetamines Screen U Benzodiazepines Scrn Urine Cocaine Screen U Marijuana (THC) Screen Ethyl Alcohol 03/10/23 03/10/23 03/10/23 13:23 13:23 13:54 MCV MCH MCHC RDW Plt Count MPV Immature Gran % (Auto) Neut % (Auto) Lymph % (Auto) [place] % (Auto) Eos % (Auto) Baso % (Auto) Lymph # (Auto) [place] # (Auto) Eos # (Auto) Baso # (Auto) Abs Immat Gran (auto) Absolute Neuts (auto) Absolute Nucleated RBC Nucleated RBC % (auto) Smear Tech's Comments Anion Gap Estim Creat Clear Calc Estimated GFR Random Glucose Lactic Acid Lactic Acid F/U @ 2Hr 0.9 Calcium Magnesium Total Bilirubin AST ALT Alkaline Phosphatase Total Creatine Kinase Troponin I High Sens Total Protein Albumin Lipase Urine Color Yellow Urine Appearance Clear Urine pH 7.5 Ur Specific [place] >= 1.030 H Urine Protein Negative Urine Glucose (UA) Negative Urine Ketones Negative Urine Blood Small (1+) H Urine Nitrite Negative Ur Leukocyte Esterase Negative Urine RBC 11-20 H Urine WBC 0-5 Ur Squamous Epith Cells 0-2 Urine Bacteria None Seen Hyaline Casts 0-2 Urine Opiates Screen POSITIVE H Urine Fentanyl Screen Not Detected Ur Barbiturates Screen Not Detected Ur Phencyclidine Scrn Not Detected Ur Amphetamines Screen Not Detected U Benzodiazepines Scrn Not Detected Urine Cocaine Screen Not Detected U Marijuana (THC) Screen Not Detected Ethyl Alcohol 03/10/23 Unknown MCV MCH MCHC RDW Plt Count MPV Immature Gran % (Auto) Neut % (Auto) Lymph % (Auto) [place] % (Auto) Eos % (Auto) Baso % (Auto) Lymph # (Auto) [place] # (Auto) Eos # (Auto) Baso # (Auto) Abs Immat Gran (auto) Absolute Neuts (auto) Absolute Nucleated RBC Nucleated RBC % (auto) Smear Tech's Comments Anion Gap 15 Estim Creat Clear Calc 81.4 Estimated GFR > 60 Random Glucose 116 H Lactic Acid Lactic Acid F/U @ 2Hr Calcium 9.5 D Magnesium 2.3 Total Bilirubin 0.5 AST 13 ALT 22 Alkaline Phosphatase 70 Total Creatine Kinase 49 Troponin I High Sens Total Protein 7.5 Albumin 4.3 Lipase 36 Urine Color Urine Appearance Urine pH Ur Specific [place] Urine Protein Urine Glucose (UA) Urine Ketones Urine Blood Urine Nitrite Ur Leukocyte Esterase Urine RBC Urine WBC Ur Squamous Epith Cells Urine Bacteria Hyaline Casts Urine Opiates Screen Urine Fentanyl Screen Ur Barbiturates Screen Ur Phencyclidine Scrn Ur Amphetamines Screen U Benzodiazepines Scrn Urine Cocaine Screen U Marijuana (THC) Screen Ethyl Alcohol < 10 <Christina Fatima NP - Last Filed: 03/11/23 09:39> Imaging Radiologist's Impressions: Impressions Chest X-Ray 03/10/23 11:52 IMPRESSION: Unremarkable examination. Abdomen/Pelvis CT 03/10/23 12:51 IMPRESSION: 1. Apparent wall prominence of the rectum and rectosigmoid region, could be related to lack of distention. Proctitis/colitis cannot be excluded. Clinically correlate. Colonic diverticulosis without evidence of diverticulitis. Large colon is nondistended otherwise limiting evaluation. Followup imaging for reassessment as clinically warranted. 2. Mild right hydronephrosis. No radiopaque calculi. Etiology of the hydronephrosis has not been determined. 3. Status post cholecystectomy. 4. Small hiatal hernia. 5. Additional findings and details as above. Fleischner guidelines were followed. <Christina Fatima NP - Last Filed: 03/11/23 09:39> Assessment and Plan (1) Abdominal pain: Status: Acute <Christina Fatima NP - Last Filed: 03/11/23 09:39> 52 year old man admitted with colitis with symptoms for 3 weeks, [place] [facility] [place]ann[place] Colitis Zosyn GI consult, general surgery following pain management, antiemetics clear liquid diet for now, bowel rest IV fluids Pre-diabetes sliding scale BPH flomax DVT prophylaxis with Lovenox full code <Christina Fatima NP - Last Filed: 03/11/23 09:39> Time Spent With Patient Time: Total time managing care of this patient today ____ minutes. <Christina Fatima NP - Last Filed: 03/11/23 09:39> Quality Stroke Does the patient have a stroke diagnosis?: No <Blake Solorzano MD - Last Filed: 03/10/23 17:19> VTE Prior VTE?: No <Blake Solorzano MD - Last Filed: 03/10/23 17:19> VTE Risk Level:: Medical - moderate - high <Blake Solorzano MD - Last Filed: 03/10/23 17:19> VTE Device Contraindication: Treatment Not Indicated <Blake Solorzano MD - Last Filed: 03/10/23 17:19> VTE Drug Contraindication: N/A - Med Ordered <Blake Solorzano MD - Last Filed: 03/10/23 17:19>
--- NOTE | 2023-03-10 16:06 | PHA.MEDREC ---
Pharmacy Consult ? Medication Reconciliation Pharmacy has completed the medication reconciliation. spoke with patient and to confirm medications. Patient is also taking 5g fiber gummies.
[2023-03-10] MEDS: Acetaminophen 325 MG TABLET 650 MG PO (16:45)
[2023-03-10] MEDS: Enoxaparin Sodium 40 MG/0.4 ML SYRINGE SUBCUT (16:45)
[2023-03-10] MEDS: 0.9 % Sodium Chloride Flush 3 ML SYRINGE IVFLUSH (17:38)
[2023-03-10] MEDS: 0.9 % Sodium Chloride 1,000 ML 100 ML IVCONT (17:39)
[2023-03-10] MEDS: oxyCODONE HCl Immed Release 5 MG TABLET PO ×2 (17:46→21:43)
[2023-03-10] MEDS: Morphine Sulfate 4 MG/ML CARTRIDGE 2 MG IVPUSH (19:33)
[2023-03-10 20:33] LABS: Glucose, Whole Blood 92 mg/dL (60-115)
[2023-03-10] MEDS: Melatonin 3 MG TABLET 6 MG PO (21:43)
[2023-03-11] VITALS (11 sets, daily range): BP systolic 91–128; BP diastolic 52–73; PULSE 63–90; RESP 16–18; TEMP 36.1–37.2; O2SAT 92–96
[2023-03-11] MEDS: Acetaminophen 325 MG TABLET 650 MG PO ×2 (00:48→17:04)
[2023-03-11] MEDS: 0.9 % Sodium Chloride 1,000 ML 100 ML IVCONT ×2 (00:50→10:53)
[2023-03-11] MEDS: Morphine Sulfate 4 MG/ML CARTRIDGE 2 MG IVPUSH (05:52)
[2023-03-11] MEDS: ondansetron HCL 4 MG/2 ML VIAL IVPUSH (05:52)
[2023-03-11 05:53] LABS: Hematocrit 36.4 % (42.0-52.0); Hemoglobin 12.1 g/dl (14.0-18.0); Mean Corpuscular HGB Conc 33.2 g/dl (31.0-36.0); Mean Corpuscular Hemoglobin 30.4 pg (27.0-33.0); Mean Corpuscular Volume 91.5 fL (80.0-98.0); Mean Platelet Volume 8.6 fL (9.4-12.4); Platelet Count 245 X10*3/uL (160-400); Red Blood Count 3.98 X10*6/uL (4.60-5.80); Red Cell Distribution Width 14.3 % (11.0-16.0); White Blood Count 7.9 X10*3/uL (4.8-10.8)
[2023-03-11] MEDS: Piperacillin Sodium/Tazobactam 3.375 GM in 0.9 % Sodium Chloride 50 ML IV ×4 (05:53→23:55)
[2023-03-11 06:12] LABS: Anion Gap 9 (12-20); Blood Urea Nitrogen 10 mg/dL (9-16); Calcium 8.2 mg/dL (8.4-10.2); Carbon Dioxide 26 mmol/L (22-29); Chloride 109 mmol/L (96-108); Estimated Glomerular Filt Rate > 60; Glucose Random 90 mg/dL (60-115); Potassium 3.5 mmol/L (3.3-5.1); Sodium 140 mmol/L (135-145)
[2023-03-11 07:13] LABS: Glucose, Whole Blood 93 mg/dL (60-115)
--- NOTE | 2023-03-11 08:04 | P.CNGI_ITS ---
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 Patient complains of nausea, vomiting, diarrhea , diaphoresis, fatigue, malaise, sweating, subjective fevers ongoing for the past 2 weeks however worsening over the past few days with nausea and vomiting. He also reports profuse diarrhea without blood - no BM since yesterday. Bowel movements has been lose with intermittent explosive diarrhea. Abd pain has improved to 4-5/10 today after pain medications. Vomitus has been yellow and green in color. Patient reports he has been unable to eat due to abdominal pain and diarrhea and has been trying to keep himself hydrated. Pt denied chest pain, sob, recent travel, sick contacts. Patient denies major cardiac or pulmonary problems. He quitted smoking 15 years ago and Vapes at present Patient denies known family history of IBD, colon polyps or colon cancer. Patient lives with his fiancee and has grown children. 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 Patient reports having a colonoscopy at [facility] earlier this year - he reports he may have had colon polyps (report is not available) Labs all within acceptable limits, vital sign stable. He received a dose of Zosyn in the ED as well as morphine and IV fluids.? Patient was admitted for further management and treatment of colitis. 03/10/[address] SCAN SHOWED: 1. Apparent wall prominence of the rectum and rectosigmoid region, could be related to lack of distention. Proctitis/colitis cannot be excluded. Clinically correlate. Colonic diverticulosis without evidence of diverticulitis. Large colon is nondistended otherwise limiting evaluation. Followup imaging for reassessment as clinically warranted. ? 2. Mild right hydronephrosis. No radiopaque calculi. Etiology of the hydronephrosis has not been determined. ? 3. Status post cholecystectomy. ? 4. Small hiatal hernia. ? Review of Systems 2 Review of Systems: Denies any recent fever chills or decrease in appetite respiratory denies any shortness of breath coverage production cardiovascular denies chest pain gastrointestinal see HPI genitourinary denies any dysuria frequency or hematuria musculoskeletal denies any joint pain or swelling neuropsych denies any weakness or seizures all other systems reviewed are negative PMFSH Past Medical History Medical History Dehydration History of BPH Pre-diabetes Surgical History Surgical History History of appendectomy Hx of cholecystectomy Social History Social History Household Members Other:: fianc?, daughter Housing: House Do you presently have visiting nurse or other home services: No Alcohol intake: current Alcohol intake frequency: 0-2 drinks per day Patient Tobacco Use Status: Current everyday Tobacco user Tobacco use type: Smokeless Tobacco e-Cigarette/Vaping Use: Currently Using Second Hand Smoke Exposure: No service: No Meds Allergies Allergy/AdvReac Type Severity Reaction Status Date / Time No Known Allergies Allergy Verified 09/18/22 10:59 Active Medications: Current Medications Acetaminophen (Acetaminophen 325 Mg Tablet) 650 mg PO Q6H PRN PRN Reason: Pain, Mild (Pain Scale 1-3) Last Admin: 03/11/23 00:48 Dose: 650 mg Dextrose (Dextrose 50 % 25 Gm/50 Ml Syringe) 25 gm IVPUSH Q15M PRN; Protocol PRN Reason: per Hypoglycemia Standing Ord. Enoxaparin Sodium (Enoxaparin Sodium 40 Mg/0.4 Ml Syringe) 40 mg SUBCUT Q24H [facility] Last Admin: 03/10/23 16:45 Dose: 40 mg Glucose (Glucose Gel 15 Gm Gel..Gram.) 15 gm PO Q15M PRN; Protocol PRN Reason: per Hypoglycemia Standing Ord. Piperacillin Sod/Tazobactam (Sod 3.375 gm/ Sodium Chloride) 50 mls @ 100 mls/hr IV Q6H [facility] Last Infusion: 03/11/23 06:25 Dose: Infused Sodium Chloride (Ns) 1,000 mls @ 100 mls/hr IVCONT .Q10H [facility] Last Admin: 03/11/23 00:50 Dose: 100 mls/hr Insulin Human Lispro (Insulin Lispro 100 Unit/Ml 3 Ml Vial) 0 unit SUBCUT QIDACHS [facility]; Protocol Last Admin: 03/11/23 07:42 Dose: Not Given Melatonin (Melatonin 3 Mg Tablet) 6 mg PO BEDTIME PRN PRN Reason: Insomnia Last Admin: 03/10/23 21:43 Dose: 6 mg Morphine Sulfate (Morphine Sulfate 4 Mg/Ml Cartridge) 2 mg IVPUSH Q4H PRN; Protocol PRN Reason: Pain, Severe (Pain Scale 7-10) Last Admin: 03/11/23 05:52 Dose: 2 mg Ondansetron HCl (Ondansetron Hcl 4 Mg/2 Ml Vial) 4 mg IVPUSH Q8H PRN PRN Reason: Nausea and Vomiting Last Admin: 03/11/23 05:52 Dose: 4 mg Oxycodone HCl (Oxycodone Hcl Immed Release 5 Mg Tablet) 5 mg PO Q4H PRN PRN Reason: abdominal pain Last Admin: 03/10/23 21:43 Dose: 5 mg Pharmacy Consult (Consult Rx Perform Med Rec) 1 each MISCELLANE ONCE PRN PRN Reason: Consult order Sodium Chloride (0.9 % Sodium Chloride Flush 3 Ml Syringe) 3 ml IVFLUSH [facility] Last Admin: 03/10/23 23:14 Dose: Not Given Home Medications Medication Instructions Recorded Confirmed Last Taken Type acetaminophen 500 mg tablet 1,000 mg PO Q6H PRN Pain 03/10/23 03/10/23 Unknown History mirabegron 50 mg tablet,extended 50 mg PO DAILY 03/10/23 03/10/23 Unknown History release 24 hr (Myrbetriq) ondansetron HCl 8 mg tablet 8 mg PO BID PRN Nausea 03/10/23 03/10/23 Unknown History prednisone 20 mg tablet 40 mg PO DAILY 03/10/23 03/10/23 Unknown History semaglutide (weight loss) 1.7 1.7 mg subcut FR 03/10/23 03/10/23 03/08/23 History mg/0.75 mL subcutaneous pen injector (Travis) tamsulosin 0.4 mg capsule 0.4 mg PO DAILY 03/10/23 03/10/23 Unknown History Physical Exam 2 Vital Signs: Vital Signs: Last Vital Signs Temp 97 F 03/11/23 06:53 Pulse 64 03/11/23 06:53 Resp 16 03/11/23 06:53 BP 98/52 L 03/11/23 06:53 Pulse Ox 96 03/11/23 06:53 O2 Del Method Room Air 03/11/23 06:53 BMI result Body Mass Index 29.0 Const: General: healthy appearing and no acute distress Nutritional Appearance: overweight Orientation/consciousness: patient oriented x3 L imitations: no limitations HEENT: Head: Yes normal to inspection Ears: hearing grossly normal bilaterally Mouth: Normal oral and palatal mucosa present Eyes: Sclerae: sclerae normal Pupils: Equal, round and reactive pupils present Neck: Neck: Yes normal visual inspection Chest: Chest palpation & inspection: normal inspection of the chest Resp: Effort & Inspection: normal respiratory effort Auscultation: clear to auscultation bilaterally Cardio: Palpation: normal PMI Rate: regular rate Rhythm: regular rhythm Heart sounds: S1 normal heart sound present, S2 normal heart sound present and no murmurs GI: Palpation (GI): Soft to palpation, Tenderness to palpation present (GI) (Mild lower abdominal tenderness without rebound) and No hepatosplenomegaly present Auscultation: normal bowel sounds Rectal Exam - Male: Yes deferred Skin: General skin exam: no rashes or lesions noted Neuro: General: patient oriented x3, gait normal and moves all extremities Cranial nerves: Yes Equal, round and reactive pupils present Psych: Appearance: grossly normal Mental Status: mental status grossly normal Results Labs 03/11/23 05:28 03/11/23 05:28 Labs: Short CBC 03/10/23 03/11/23 Range/Units 11:30 05:28 WBC 13.4 H 7.9 (4.8-10.8) X10*3/uL Hgb 15.3 12.1 L D (14.0-18.0) g/dl Hct 45.1 36.4 L (42.0-52.0) % Plt Count 316 D 245 (160-400) X10*3/uL BMP 03/10/23 03/11/23 Unknown 05:28 Sodium 142 140 Potassium 3.6 3.5 Chloride 106 109 H Carbon Dioxide 25 26 BUN 17 H 10 Creatinine 0.98 0.77 Calcium 9.5 D 8.2 L D Cardiac Enzymes 03/10/23 Range/Units Unknown Total Creatine Kinase 49 (38-174) U/L Liver Function 03/10/23 Range/Units Unknown Total Bilirubin 0.5 (0.0-1.0) mg/dL AST 13 (5-37) U/L ALT 22 (0-40) U/L Alkaline Phosphatase 70 (39-117) U/L Albumin 4.3 (3.5-5.0) g/dL Urine 03/10/23 Range/Units 13:23 Urine Color Yellow Urine Appearance Clear Urine pH 7.5 (5.0-9.0) Ur Specific [place] >= 1.030 H (1.005-1.025) Urine Protein Negative (Neg-Trace) mg/dL Urine Glucose (UA) Negative (Negative) mg/dL Assessment and Plan (1) Diarrhea: Status: Resolved (2) Abnormal CT of the abdomen: Status: Inactive Plan 52 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 Patient complains of nausea, vomiting, diarrhea , diaphoresis, fatigue, malaise, subjective fevers ongoing for the past 2 weeks however worsening over the past few days with nausea and vomiting. RECOMMENDATIONS: 1. Check a GI panel and C Diff toxin if patient has recurrent diarrhea 2. CRP, Celiac serologies - added to am labs 3. Proceed with Flex Sigmoidoscopy today. Flex sig procedure and potential complications including bleeding, perforation, reaction to anesthetics were reviewed with the patient. Time Spent With Patient Time: Total time managing care of this patient today ____ minutes. Procedures Date of Service Date of Service: 05/29/23
--- NOTE | 2023-03-11 08:34 | P.PNIM_ITS ---
Subjective Subjective Date of Service: 03/11/23 Review of Systems Follow-up colitis Still with abdominal pain Physical Exam Vital Signs: Vital Signs: Last Vital Signs Temp 97 F 03/11/23 06:53 Pulse 64 03/11/23 06:53 Resp 16 03/11/23 06:53 BP 98/52 L 03/11/23 06:53 Pulse Ox 96 03/11/23 06:53 O2 Del Method Room Air 03/11/23 06:53 BMI result Body Mass Index 29.0 Appearing in no acute distress lung sounds are clear to auscultation heart regular rate rhythm, clear S1, S2 positive bowel sounds, abdomen is soft, nontender neuro patient is alert x3, no focal deficits Objective Data Active Medications Acetaminophen (Acetaminophen 325 Mg Tablet) 650 mg PO Q6H PRN PRN Reason: Pain, Mild (Pain Scale 1-3) Last Admin: 03/11/23 00:48 Dose: 650 mg Documented By: DEMOND Dextrose (Dextrose 50 % 25 Gm/50 Ml Syringe) 25 gm IVPUSH Q15M PRN; Protocol PRN Reason: per Hypoglycemia Standing Ord. Enoxaparin Sodium (Enoxaparin Sodium 40 Mg/0.4 Ml Syringe) 40 mg SUBCUT Q24H [facility] Last Admin: 03/10/23 16:45 Dose: 40 mg Documented By: LV Glucose (Glucose Gel 15 Gm Gel..Gram.) 15 gm PO Q15M PRN; Protocol PRN Reason: per Hypoglycemia Standing Ord. Piperacillin Sod/Tazobactam (Sod 3.375 gm/ Sodium Chloride) 50 mls @ 100 mls/hr IV Q6H [facility] Last Infusion: 03/11/23 06:25 Dose: 0 mls/hr Documented By: DEMOND Sodium Chloride (Ns) 1,000 mls @ 100 mls/hr IVCONT .Q10H [facility] Last Admin: 03/11/23 00:50 Dose: 100 mls/hr Documented By: DEMOND Insulin Human Lispro (Insulin Lispro 100 Unit/Ml 3 Ml Vial) 0 unit SUBCUT QIDACHS [facility]; Protocol Last Admin: 03/11/23 07:42 Dose: Not Given Documented By: RASHAWN Non-Admin Reason: No Insulin Coverage Melatonin (Melatonin 3 Mg Tablet) 6 mg PO BEDTIME PRN PRN Reason: Insomnia Last Admin: 03/10/23 21:43 Dose: 6 mg Documented By: DEMOND Morphine Sulfate (Morphine Sulfate 4 Mg/Ml Cartridge) 2 mg IVPUSH Q4H PRN; Protocol PRN Reason: Pain, Severe (Pain Scale 7-10) Last Admin: 03/11/23 05:52 Dose: 2 mg Documented By: DEMOND Ondansetron HCl (Ondansetron Hcl 4 Mg/2 Ml Vial) 4 mg IVPUSH Q8H PRN PRN Reason: Nausea and Vomiting Last Admin: 03/11/23 05:52 Dose: 4 mg Documented By: DEMOND Oxycodone HCl (Oxycodone Hcl Immed Release 5 Mg Tablet) 5 mg PO Q4H PRN PRN Reason: abdominal pain Last Admin: 03/10/23 21:43 Dose: 5 mg Documented By: DEMOND Pharmacy Consult (Consult Rx Perform Med Rec) 1 each MISCELLANE ONCE PRN PRN Reason: Consult order Sodium Chloride (0.9 % Sodium Chloride Flush 3 Ml Syringe) [address] [facility] [address] Last Admin: 03/10/23 23:14 Dose: Not Given Documented By: DEMOND Non-Admin Reason: IV Running Labs 03/11/23 05:28 03/11/23 05:28 Labs: Laboratory Results - last 24 hr 03/10/23 03/10/23 03/10/23 11:30 11:30 11:30 MCV 90.2 MCH 30.6 MCHC 33.9 RDW 14.0 Plt Count 316 D MPV 8.5 L Immature Gran % (Auto) 0.6 H Neut % (Auto) 93.6 H Lymph % (Auto) 3.8 L Warren % (Auto) 1.7 L Eos % (Auto) 0.1 Baso % (Auto) 0.2 Lymph # (Auto) 0.5 L Warren # (Auto) 0.2 Eos # (Auto) 0.0 Baso # (Auto) 0.0 Abs Immat Gran (auto) 0.08 H Absolute Neuts (auto) 12.5 H Absolute Nucleated RBC 0.000 Nucleated RBC % (auto) 0.0 Smear Tech's Comments VERIFIED Anion Gap Estim Creat Clear Calc Estimated GFR POC Glucose Random Glucose Lactic Acid 4.1 H* Lactic Acid F/U @ 2Hr Calcium Magnesium Total Bilirubin AST ALT Alkaline Phosphatase Total Creatine Kinase Troponin I High Sens < 2.7 Total Protein Albumin Lipase Urine Color Urine Appearance Urine pH Ur Specific [place] Urine Protein Urine Glucose (UA) Urine Ketones Urine Blood Urine Nitrite Ur Leukocyte Esterase Urine RBC Urine WBC Ur Squamous Epith Cells Urine Bacteria Hyaline Casts Urine Opiates Screen Urine Fentanyl Screen Ur Barbiturates Screen Ur Phencyclidine Scrn Ur Amphetamines Screen U Benzodiazepines Scrn Urine Cocaine Screen U Marijuana (THC) Screen Ethyl Alcohol 03/10/23 03/10/23 03/10/23 13:23 13:23 13:54 MCV MCH MCHC RDW Plt Count MPV Immature Gran % (Auto) Neut % (Auto) Lymph % (Auto) Warren % (Auto) Eos % (Auto) Baso % (Auto) Lymph # (Auto) Warren # (Auto) Eos # (Auto) Baso # (Auto) Abs Immat Gran (auto) Absolute Neuts (auto) Absolute Nucleated RBC Nucleated RBC % (auto) Smear Tech's Comments Anion Gap Estim Creat Clear Calc Estimated GFR POC Glucose Random Glucose Lactic Acid Lactic Acid F/U @ 2Hr 0.9 Calcium Magnesium Total Bilirubin AST ALT Alkaline Phosphatase Total Creatine Kinase Troponin I High Sens Total Protein Albumin Lipase Urine Color Yellow Urine Appearance Clear Urine pH 7.5 Ur Specific [place] >= 1.030 H Urine Protein Negative Urine Glucose (UA) Negative Urine Ketones Negative Urine Blood Small (1+) H Urine Nitrite Negative Ur Leukocyte Esterase Negative Urine RBC 11-20 H Urine WBC 0-5 Ur Squamous Epith Cells 0-2 Urine Bacteria None Seen Hyaline Casts 0-2 Urine Opiates Screen POSITIVE H Urine Fentanyl Screen Not Detected Ur Barbiturates Screen Not Detected Ur Phencyclidine Scrn Not Detected Ur Amphetamines Screen Not Detected U Benzodiazepines Scrn Not Detected Urine Cocaine Screen Not Detected U Marijuana (THC) Screen Not Detected Ethyl Alcohol 03/10/23 03/10/23 03/11/23 20:16 Unknown 05:28 MCV 91.5 MCH 30.4 MCHC 33.2 RDW 14.3 Plt Count 245 MPV 8.6 L Immature Gran % (Auto) Neut % (Auto) Lymph % (Auto) [place] % (Auto) Eos % (Auto) Baso % (Auto) Lymph # (Auto) [place] # (Auto) Eos # (Auto) Baso # (Auto) Abs Immat Gran (auto) Absolute Neuts (auto) Absolute Nucleated RBC 0.000 Nucleated RBC % (auto) 0.0 Smear Tech's Comments Anion Gap 15 Estim Creat Clear Calc 81.4 Estimated GFR > 60 POC Glucose 92 Random Glucose 116 H Lactic Acid Lactic Acid F/U @ 2Hr Calcium 9.5 D Magnesium 2.3 Total Bilirubin 0.5 AST 13 ALT 22 Alkaline Phosphatase 70 Total Creatine Kinase 49 Troponin I High Sens Total Protein 7.5 Albumin 4.3 Lipase 36 Urine Color Urine Appearance Urine pH Ur Specific [place] Urine Protein Urine Glucose (UA) Urine Ketones Urine Blood Urine Nitrite Ur Leukocyte Esterase Urine RBC Urine WBC Ur Squamous Epith Cells Urine Bacteria Hyaline Casts Urine Opiates Screen Urine Fentanyl Screen Ur Barbiturates Screen Ur Phencyclidine Scrn Ur Amphetamines Screen U Benzodiazepines Scrn Urine Cocaine Screen U Marijuana (THC) Screen Ethyl Alcohol < 10 03/11/23 03/11/23 05:28 06:52 MCV MCH MCHC RDW Plt Count MPV Immature Gran % (Auto) Neut % (Auto) Lymph % (Auto) [place] % (Auto) Eos % (Auto) Baso % (Auto) Lymph # (Auto) [place] # (Auto) Eos # (Auto) Baso # (Auto) Abs Immat Gran (auto) Absolute Neuts (auto) Absolute Nucleated RBC Nucleated RBC % (auto) Smear Tech's Comments Anion Gap 9 L Estim Creat Clear Calc 105.0 Estimated GFR > 60 POC Glucose 93 Random Glucose 90 Lactic Acid Lactic Acid F/U @ 2Hr Calcium 8.2 L D Magnesium Total Bilirubin AST ALT Alkaline Phosphatase Total Creatine Kinase Troponin I High Sens Total Protein Albumin Lipase Urine Color Urine Appearance Urine pH Ur Specific [place] Urine Protein Urine Glucose (UA) Urine Ketones Urine Blood Urine Nitrite Ur Leukocyte Esterase Urine RBC Urine WBC Ur Squamous Epith Cells Urine Bacteria Hyaline Casts Urine Opiates Screen Urine Fentanyl Screen Ur Barbiturates Screen Ur Phencyclidine Scrn Ur Amphetamines Screen U Benzodiazepines Scrn Urine Cocaine Screen U Marijuana (THC) Screen Ethyl Alcohol Assessment and Plan (1) Nausea & vomiting: Status: Acute (2) Diarrhea: Status: Acute Plan 52 year old man admitted with colitis with symptoms for 3 weeks, previously seen at [facility] in February of 2023 and diagnosed with mesenteric panniculitis Colitis Continue Zosyn GI consult, general surgery following pain management, antiemetics clear liquid diet for now, bowel rest IV fluids Pre-diabetes, unspecified sliding scale BPH flomax DVT prophylaxis with Lovenox full code Attending Dr. Rodriguez Observation Time Spent With Patient Time: Total time managing care of this patient today ____ minutes. Quality Stroke Does the patient have a stroke diagnosis?: No VTE Prior VTE?: No VTE Risk Level:: Medical - moderate - high VTE Device Contraindication: Treatment Not Indicated VTE Drug Contraindication: N/A - Med Ordered
[2023-03-11] MEDS: HYDROmorphone HCl 1 MG/ML SYRINGE IVPUSH ×4 (11:06→22:34)
[2023-03-11 11:14] LABS: Glucose, Whole Blood 87 mg/dL (60-115)
[2023-03-11] MEDS: Dextrose 5 % and 0.9 % NaCl 1,000 ML 100 ML IVCONT ×2 (12:07→22:35)
--- NOTE | 2023-03-11 13:34 | MHC.CLN ---
NUTRITION CURRENTLY NPO FOR PROCEDURE TODAY. CONSULT FOR WEIGHT LOSS. REVIEW OF WEIGHT HX SHOWS -8.7% WEIGHT LOSS X 6 MONTHS. DX COLITIS. FOLLOW UP WITH PATIENT ABLE WHEN DIET RESUMES.
[2023-03-11] MEDS: Sodium Phosphate,Mono-Dibasic 133 ML ENEMA PR (14:02)
--- NOTE | 2023-03-11 14:14 | MHC.CM.PN ---
met with pt who lives with antoni he is working and independent no servceis will be needed
--- NOTE | 2023-03-11 15:11 | HO.ANESPROP2 ---
[facility] Active Problems Active Problems: All Active Problems (Updated 03/11/23 @ 08:05 by Jude Rasheed MD) Abnormal CT of the abdomen (Acute) Dehydration (Acute) Abdominal pain (Acute) Nausea & vomiting (Acute) Diarrhea (Acute) Past Medical History Medical History Dehydration History of BPH Pre-diabetes Surgical History Surgical History History of appendectomy Hx of cholecystectomy History of Problems with Anesthesia: No Social History Social History Household Members Other:: fianc?, daughter Housing: House Do you presently have visiting nurse or other home services: No Alcohol intake: current Alcohol intake frequency: 0-2 drinks per day Patient Tobacco Use Status: Current everyday Tobacco user Tobacco use type: Smokeless Tobacco e-Cigarette/Vaping Use: Currently Using Frequency of e-Cigarette/Vaping Use: All the time Patient Interested in Nicotine Replacement: Yes Patient Given Instructions on How to Stop Smoking: Yes Date Education Initiated: 03/10/23 Second Hand Smoke Exposure: No Use of substances other than those prescribed or required for medical reasons: No Currently Displaying Signs/Symptoms of Drug Intoxication Withdrawal: No Have you been hit, kicked, punched, or otherwise hurt by someone within the past year? If so, by whom?: No Do you feel safe in your current relationship?: Yes Is there a partner from a previous relationship who is making you feel unsafe now?: No Are you made to feel afraid or neglected: No [facility] Practices: [facility] Advance Directives: No Advance Directives Information Provided: Yes Advance Directives on File: No Do you have thoughts of harming others: None Recently lost weight without trying: Yes How much weight loss: 24-33 pounds Eating poorly because of decreased appetite: Yes Nutrition screen score: 6 Nutrition Risks: No Nutritional Risk Poor oral hygiene: No service: No Meds Allergies Allergy/AdvReac Type Severity Reaction Status Date / Time No Known Allergies Allergy Verified 09/18/22 10:59 Active Medications: Current Medications Acetaminophen (Acetaminophen 325 Mg Tablet) 650 mg PO Q6H PRN PRN Reason: Pain, Mild (Pain Scale 1-3) Last Admin: 03/11/23 00:48 Dose: 650 mg Dextrose (Dextrose 50 % 25 Gm/50 Ml Syringe) 25 gm IVPUSH Q15M PRN; Protocol PRN Reason: per Hypoglycemia Standing Ord. Enoxaparin Sodium (Enoxaparin Sodium 40 Mg/0.4 Ml Syringe) 40 mg SUBCUT Q24H [facility] Last Admin: 03/10/23 16:45 Dose: 40 mg Glucose (Glucose Gel 15 Gm Gel..Gram.) 15 gm PO Q15M PRN; Protocol PRN Reason: per Hypoglycemia Standing Ord. Hydromorphone HCl (Hydromorphone Hcl 1 Mg/Ml Syringe) 1 mg IVPUSH Q4H PRN; Protocol PRN Reason: Pain, Severe (Pain Scale 7-10) Last Admin: 03/11/23 14:34 Dose: 1 mg Piperacillin Sod/Tazobactam (Sod 3.375 gm/ Sodium Chloride) 50 mls @ 100 mls/hr IV Q6H [facility] Last Infusion: 03/11/23 11:40 Dose: Infused Dextrose/Sodium Chloride (D5ns) 1,000 mls @ 100 mls/hr IVCONT .Q10H [facility] Last Admin: 03/11/23 12:07 Dose: 100 mls/hr Insulin Human Lispro (Insulin Lispro 100 Unit/Ml 3 Ml Vial) 0 unit SUBCUT QIDACHS [facility]; Protocol Last Admin: 03/11/23 11:23 Dose: Not Given Melatonin (Melatonin 3 Mg Tablet) 6 mg PO BEDTIME PRN PRN Reason: Insomnia Last Admin: 03/10/23 21:43 Dose: 6 mg Morphine Sulfate (Morphine Sulfate 4 Mg/Ml Cartridge) 2 mg IVPUSH Q4H PRN; Protocol PRN Reason: Pain, Severe (Pain Scale 7-10) Last Admin: 03/11/23 05:52 Dose: 2 mg Ondansetron HCl (Ondansetron Hcl 4 Mg/2 Ml Vial) 4 mg IVPUSH Q8H PRN PRN Reason: Nausea and Vomiting Last Admin: 03/11/23 05:52 Dose: 4 mg Oxycodone HCl (Oxycodone Hcl Immed Release 5 Mg Tablet) 5 mg PO Q4H PRN PRN Reason: abdominal pain Last Admin: 03/10/23 21:43 Dose: 5 mg Pharmacy Consult (Consult Rx Perform Med Rec) 1 each MISCELLANE ONCE PRN PRN Reason: Consult order Sodium Biphosphate/Sodium Phosphate (Sodium Phosphate,Platte-Dibasic 133 Ml Enema) 133 ml DC ONCE PRN PRN Reason: Pre-Op Surgical Prep Last Admin: 03/11/23 14:02 Dose: 133 ml Sodium Chloride (0.9 % Sodium Chloride Flush 3 Ml Syringe) 3 ml IVFLUSH QSHIFT TIKA Last Admin: 03/11/23 09:13 Dose: Not Given Home Medications Medication Instructions Recorded Confirmed Last Taken Type acetaminophen 500 mg tablet 1,000 mg PO Q6H PRN Pain 03/10/23 03/10/23 Unknown History mirabegron 50 mg tablet,extended 50 mg PO DAILY 03/10/23 03/10/23 Unknown History release 24 hr (Myrbetriq) ondansetron HCl 8 mg tablet 8 mg PO BID PRN Nausea 03/10/23 03/10/23 Unknown History prednisone 20 mg tablet 40 mg PO DAILY 03/10/23 03/10/23 Unknown History semaglutide (weight loss) 1.7 1.7 mg subcut FR 03/10/23 03/10/23 03/08/23 History mg/0.75 mL subcutaneous pen injector (Travis) tamsulosin 0.4 mg capsule 0.4 mg PO DAILY 03/10/23 03/10/23 Unknown History Exam Exam Date and Time: March 11, 2023 1511 Height,Weight and Vital Signs: Height 5 ft 4 in Weight 76.6 kg Last Vital Signs Temp 98.1 F 03/11/23 11:05 Pulse 68 03/11/23 11:05 Resp 16 03/11/23 11:05 BP 107/70 03/11/23 11:05 Pulse Ox 96 03/11/23 11:05 O2 Del Method Room Air 03/11/23 11:05 Pertinent Lab Results Pertinent Lab Results: Laboratory Tests 03/10/23 03/10/23 03/10/23 11:30 11:30 11:30 WBC 13.4 H RBC 5.00 Hgb 15.3 Hct 45.1 MCV 90.2 MCH 30.6 MCHC 33.9 RDW 14.0 Plt Count 316 D MPV 8.5 L Immature Gran % (Auto) 0.6 H Neut % (Auto) 93.6 H Lymph % (Auto) 3.8 L [place]atte % (Auto) 1.7 L Eos % (Auto) 0.1 Baso % (Auto) 0.2 Lymph # (Auto) 0.5 L [place] # (Auto) 0.2 Eos # (Auto) 0.0 Baso # (Auto) 0.0 Abs Immat Gran (auto) 0.08 H Absolute Neuts (auto) 12.5 H Absolute Nucleated RBC 0.000 Nucleated RBC % (auto) 0.0 Smear Tech's Comments VERIFIED Sodium Potassium Chloride Carbon Dioxide Anion Gap BUN Creatinine Estim Creat Clear Calc Estimated GFR POC Glucose Random Glucose Lactic Acid 4.1 H* Lactic Acid F/U @ 2Hr Calcium Magnesium Total Bilirubin AST ALT Alkaline Phosphatase Total Creatine Kinase Troponin I High Sens < 2.7 Total Protein Albumin Lipase Urine Color Urine Appearance Urine pH Ur Specific [place] Urine Protein Urine Glucose (UA) Urine Ketones Urine Blood Urine Nitrite Ur Leukocyte Esterase Urine RBC Urine WBC Ur Squamous Epith Cells Urine Bacteria Hyaline Casts Urine Opiates Screen Urine Fentanyl Screen Ur Barbiturates Screen Ur Phencyclidine Scrn Ur Amphetamines Screen U Benzodiazepines Scrn Urine Cocaine Screen U Marijuana (THC) Screen Ethyl Alcohol 03/10/23 03/10/23 03/10/23 13:23 13:23 13:54 WBC RBC Hgb Hct MCV MCH MCHC RDW Plt Count MPV Immature Gran % (Auto) Neut % (Auto) Lymph % (Auto) [place] % (Auto) Eos % (Auto) Baso % (Auto) Lymph # (Auto) [place] # (Auto) Eos # (Auto) Baso # (Auto) Abs Immat Gran (auto) Absolute Neuts (auto) Absolute Nucleated RBC Nucleated RBC % (auto) Smear Tech's Comments Sodium Potassium Chloride Carbon Dioxide Anion Gap BUN Creatinine Estim Creat Clear Calc Estimated GFR POC Glucose Random Glucose Lactic Acid Lactic Acid F/U @ 2Hr 0.9 Calcium Magnesium Total Bilirubin AST ALT Alkaline Phosphatase Total Creatine Kinase Troponin I High Sens Total Protein Albumin Lipase Urine Color Yellow Urine Appearance Clear Urine pH 7.5 Ur Specific [place] >= 1.030 H Urine Protein Negative Urine Glucose (UA) Negative Urine Ketones Negative Urine Blood Small (1+) H Urine Nitrite Negative Ur Leukocyte Esterase Negative Urine RBC 11-20 H Urine WBC 0-5 Ur Squamous Epith Cells 0-2 Urine Bacteria None Seen Hyaline Casts 0-2 Urine Opiates Screen POSITIVE H Urine Fentanyl Screen Not Detected Ur Barbiturates Screen Not Detected Ur Phencyclidine Scrn Not Detected Ur Amphetamines Screen Not Detected U Benzodiazepines Scrn Not Detected Urine Cocaine Screen Not Detected U Marijuana (THC) Screen Not Detected Ethyl Alcohol 03/10/23 03/10/23 03/11/23 20:16 Unknown 05:28 WBC 7.9 RBC 3.98 L D Hgb 12.1 L D Hct 36.4 L MCV 91.5 MCH 30.4 MCHC 33.2 RDW 14.3 Plt Count 245 MPV 8.6 L Immature Gran % (Auto) Neut % (Auto) Lymph % (Auto) [place]atte % (Auto) Eos % (Auto) Baso % (Auto) Lymph # (Auto) [place] # (Auto) Eos # (Auto) Baso # (Auto) Abs Immat Gran (auto) Absolute Neuts (auto) Absolute Nucleated RBC 0.000 Nucleated RBC % (auto) 0.0 Smear Tech's Comments Sodium 142 Potassium 3.6 Chloride 106 Carbon Dioxide 25 Anion Gap 15 BUN 17 H Creatinine 0.98 Estim Creat Clear Calc 81.4 Estimated GFR > 60 POC Glucose 92 Random Glucose 116 H Lactic Acid Lactic Acid F/U @ 2Hr Calcium 9.5 D Magnesium 2.3 Total Bilirubin 0.5 AST 13 ALT 22 Alkaline Phosphatase 70 Total Creatine Kinase 49 Troponin I High Sens Total Protein 7.5 Albumin 4.3 Lipase 36 Urine Color Urine Appearance Urine pH Ur Specific [place] Urine Protein Urine Glucose (UA) Urine Ketones Urine Blood Urine Nitrite Ur Leukocyte Esterase Urine RBC Urine WBC Ur Squamous Epith Cells Urine Bacteria Hyaline Casts Urine Opiates Screen Urine Fentanyl Screen Ur Barbiturates Screen Ur Phencyclidine Scrn Ur Amphetamines Screen U Benzodiazepines Scrn Urine Cocaine Screen U Marijuana (THC) Screen Ethyl Alcohol < 10 03/11/23 03/11/23 03/11/23 05:28 06:52 11:06 WBC RBC Hgb Hct MCV MCH MCHC RDW Plt Count MPV Immature Gran % (Auto) Neut % (Auto) Lymph % (Auto) [place] % (Auto) Eos % (Auto) Baso % (Auto) Lymph # (Auto) [place] # (Auto) Eos # (Auto) Baso # (Auto) Abs Immat Gran (auto) Absolute Neuts (auto) Absolute Nucleated RBC Nucleated RBC % (auto) Smear Tech's Comments Sodium 140 Potassium 3.5 Chloride 109 H Carbon Dioxide 26 Anion Gap 9 L BUN 10 Creatinine 0.77 Estim Creat Clear Calc 105.0 Estimated GFR > 60 POC Glucose 93 87 Random Glucose 90 Lactic Acid Lactic Acid F/U @ 2Hr Calcium 8.2 L D Magnesium Total Bilirubin AST ALT Alkaline Phosphatase Total Creatine Kinase Troponin I High Sens Total Protein Albumin Lipase Urine Color Urine Appearance Urine pH Ur Specific [place] Urine Protein Urine Glucose (UA) Urine Ketones Urine Blood Urine Nitrite Ur Leukocyte Esterase Urine RBC Urine WBC Ur Squamous Epith Cells Urine Bacteria Hyaline Casts Urine Opiates Screen Urine Fentanyl Screen Ur Barbiturates Screen Ur Phencyclidine Scrn Ur Amphetamines Screen U Benzodiazepines Scrn Urine Cocaine Screen U Marijuana (THC) Screen Ethyl Alcohol Airway Mallampati Class: II TM Dist: >3cm Neck ROM: Full Loose/Missing/Broken Teeth: No Heart: RRR Lungs: CTA Assessment and Plan Assessment Anesthesia Assessment: Anesthesia Plan Discussed and Chart Reviewed Final Anesthetic Review History of Problems with Anesthesia: No NPO: Yes ASA Class: II Final Preanesthetic Review: Meds/Allgs Chart Reviewed, Consent Obtained/Reviewed and Anes Risks/Benef Reviewed Patient Risk: Low Procedure Risk: Low Anesthetic Plan Anesthetic Plan: MAC: Disposition: Standard PACU
--- NOTE | 2023-03-11 15:49 | W.PM.OPN ---
Operative Note Operative Note Date of Service: 03/11/23 Narrative: FLEXIBLE SIGMOIDOSCOPY TO 30 CM WITH BIOPSIES Pre-op diagnosis: abdominal pain, nausea vomiting and diarrhea, abnormal CT scan of the colon Post-op diagnosis:? diverticulosis, hemorrhoids Endoscopist:? Jude Rasheed MD Anesthesia:?MAC Consent: Indications for the procedure and potential complications of bleeding, perforation, reaction to medications and missed diagnosis were discussed with the patient and informed consent was obtained. Instrument: Olympus PCF H 190 L variable stiffness pediatric colonoscope Monitoring: Vital signs and clinical assessment, intermittent blood pressure monitoring, continuous EKG monitoring, Pulse oximetry and Carbon Dioxide monitoring were done throughout the procedure. Please see anesthesia flowsheet. Procedure: The patient was placed in the left lateral decubitis position and pre-procedure medications were administered. After a digital rectal examination of the ano-rectum, the video colonoscope was inserted into the rectum and advanced through the colon to the sigmoid colon at 30 cms. The colonoscope was slowly withdrawn in a retrograde panoramic fashion and the colon mucosa was carefully examined including a retroflexed view of the rectum. Findings and interventions are described below. Procedure Difficulty: Without difficulty Findings: Sigmoid Colon: Mucosa of the left colon appeared normal without inflammation or ulceration. Severe diverticulosis Rectum: Normal Ano-rectum: Moderate internal hemorrhoids Colon preparation: Good Impression and Post Procedure Diagnosis: Colonoscopy Findings: No polyps were detected. Normal colon mucosa in the recto-sigmoid colon - random biopsies were obtained. Moderate diverticulosis seen in the sigmoid colon Moderate hemorrhoids on retroflexed exam. Plan: I will contact the patient with pathology results Patient can FU with his Primary GI at [facility] after discharge. Above findings were reviewed with the patient. ADDENDUM: Biopsies showed: Colon, left, biopsy: Colonic mucosa within normal limits.
[2023-03-11 16:49] LABS: Glucose, Whole Blood 74 mg/dL (60-115)
[2023-03-11] MEDS: Enoxaparin Sodium 40 MG/0.4 ML SYRINGE SUBCUT (17:04)
--- NOTE | 2023-03-11 17:58 | PC.NURSE ---
returned from procedure at approximately 1700 at this time pt A&Ox4 and able to walk from stretcher to bathroom back to bed. Pt endorsing headache PRN Tylenol given. IV abx and IVF infusing as ordered. All safety measures in place, VSS.
[2023-03-11 20:16] LABS: Glucose, Whole Blood 91 mg/dL (60-115)
[2023-03-11] MEDS: Mirabegron 50 MG TAB.ER.24H PO (20:23)
[2023-03-11] MEDS: Melatonin 3 MG TABLET 6 MG PO (22:34)
[2023-03-12 03:59] VITALS: BP 107/67; PULSE 68; RESP 16; TEMP 37.2; O2SAT 96
[2023-03-12] MEDS: HYDROmorphone HCl 1 MG/ML SYRINGE IVPUSH ×2 (04:10→09:16)
[2023-03-12] MEDS: Piperacillin Sodium/Tazobactam 3.375 GM in 0.9 % Sodium Chloride 50 ML IV (05:59)
[2023-03-12 06:42] LABS: C Reactive Protein 1.72 mg/dL (< or = 0.50)
[2023-03-12 07:36] VITALS: BP 109/66; PULSE 72; RESP 18; TEMP 36.6; O2SAT 96
[2023-03-12 07:38] LABS: Glucose, Whole Blood 90 mg/dL (60-115)
[2023-03-12] MEDS: Mirabegron 50 MG TAB.ER.24H PO (09:09)
[2023-03-12] MEDS: Tamsulosin HCL 0.4 MG CAPSULE PO (09:09)
[2023-03-12] MEDS: predniSONE 20 MG TABLET 40 MG PO (09:09)
[2023-03-12] MEDS: 0.9 % Sodium Chloride Flush 3 ML SYRINGE IVFLUSH (09:09)
--- NOTE | 2023-03-12 09:28 | PM.DS ---
DS: Providers Provider Date of Service: 03/12/23 Date of admission: 03/10/23 15:22 Primary care physician: Unknown Physician Consults: 03/10/23 15:36 Consult to Gastroenterology Routine Consulting Provider: Jude Rasheed Reason for consultation: colitis DS: Diagnosis Discharge Diagnosis (1) Diarrhea: Status: Acute (2) Abnormal CT of the abdomen: Status: Acute DS: Summary Hospital Course Hospital Course: 52-year-old man treated for colitis with IV Zosyn. He had nausea, vomiting and diarrhea episodes although stool studies were unable to be obtained due to no episodes of diarrhea during the admission. He had a flex sig which showed no polyps, normal colon mucosa in the rectosigmoid colon, moderate diverticulosis and moderate hemorrhoids. Biopsies were obtained. No obvious active infection. He was treated with IV Zosyn but no antibiotics needed on discharge. He was recently diagnosed with mesenteric panniculitis at [facility] and he should follow-up with the supervising nurse for further workup for this as well as results of CRP, RMAON and celiac testing. He should follow a low inflammation diet at home. He was sent home with a few days of Ultram for pain, he declined oxycodone. He had no further episodes of vomiting or diarrhea, diet was advanced and patient was able to take food with no issue. Pre diabetes. Placed on sliding scale during admission, can follow-up with checking A1c through primary care provider BPH. Continue Flomax Time Spent with Patient Time attestation: Total time managing care of this patient today ____ minutes. Discharge coordination time: Greater than 30 minutes Quality: Safe Use of Opioids Does Pt have an Active Cancer Diagnosis on the Problem List?: No Quality: Stroke Does the patient have a stroke diagnosis?: No Physical Exam Vital Signs: Vital Signs: Last Vital Signs Temp 97.8 F 03/12/23 07:36 Pulse 72 03/12/23 07:36 Resp 18 03/12/23 07:36 BP 109/66 03/12/23 07:36 Pulse Ox 96 03/12/23 07:36 O2 Del Method Room Air 03/12/23 07:36 O2 Flow Rate 2 03/11/23 16:25 BMI result Body Mass Index 29.0 Appearing in no acute distress head is normocephalic atraumatic eyes pupils are PERRLA sclera is anicteric mouth throat mucous membranes are intact and moist neck is supple no lymphadenopathy, no JVD noted lung sounds are clear to auscultation heart regular rate rhythm, clear S1, S2 positive bowel sounds, abdomen is soft, nontender neuro patient is alert x3, no focal deficits DS: Data Data Completed and Pending Pending studies at discharge: Pending at discharge 03/11/23 15:43 Surgical [PTH] Routine Labs on day of discharge: Laboratory Results - last 24 hr 03/11/23 03/11/23 03/11/23 11:06 16:46 20:12 POC Glucose 87 74 91 C-Reactive Protein 03/12/23 03/12/23 05:32 07:34 POC Glucose 90 C-Reactive Protein 1.72 H Preliminary micro results at discharge 03/10/23 12:05 Blood Culture - Preliminary Blood - Venous No growth after 24 hours. 03/10/23 11:30 Blood Culture - Preliminary Blood - Venous No growth after 24 hours. Discharge Plan Discharge Anticipated Discharge Date/Time: 03/12/23 08:04 Patient Disposition: Home, Self-Care Discharge Diagnosis: Colitis Referrals: Jude Rasheed MD [Physician] - 1 Week Discharge Medications: New tramadol 100 mg tablet 100 mg PO Q6H PRN (Reason: pain) Qty: 16 0RF Continued ondansetron HCl 8 mg tablet 8 mg PO BID PRN (Reason: Nausea) prednisone 20 mg tablet 40 mg PO DAILY acetaminophen 500 mg Tablet 1,000 mg PO Q6H PRN (Reason: Pain) tamsulosin 0.4 mg capsule 0.4 mg PO DAILY Rx Instructions: TAKE 1/2 HOUR AFTER THE LAST MEAL OF THE DAY Myrbetriq 50 mg tablet extended release 24 hr 50 mg PO DAILY Wegovy 1.7 mg/0.75 mL pen injector 1.7 mg subcut FR Discharge Orders: Discharge Order (Routine); Ordered 03/12/23 Ordered By: Christina Fatima Diet: Advance to usual diet Activity on Discharge: As tolerated Stand Alone Forms: Patient Portal Discharge page Care Plan Goals: Complete resolution of symptoms Health Concerns: Colitis Plan of Treatment: Follow-up with supervising nurse for further workup of colitis and new diagnosis of mesenteric panniculitis Take all medications as prescribed Labs for CRP, celiac and RAMON pending Assessment: See discharge summary Patient Instructions: How to Quit Using Smokeless Tobacco (DC)
--- NOTE | 2023-03-12 11:56 | MHC.CM.PN ---
Patient is discharged to home self care. He has arranged for transportation home.
--- NOTE | 2023-03-12 14:37 | HO.POSTANES ---
Post Anesthesia Evaluation Post Anesthesia Evaluation Date of Service: 03/12/23 Vital Signs: Vital Signs Temp Pulse Resp BP Pulse Ox O2 Del Method 03/12/23 07:36 97.8 F 72 18 109/66 96 Room Air 03/12/23 03:59 98.9 F 68 16 107/67 96 Room Air Anesthesia: Monitored Mental Status: Awake Pain Control: Satisfactory Nausea/Vomiting: None Hydration: Adequate Anesthesia-Related Issues: No Anes. Related Issues
[2023-03-14 15:28] LABS: Transglutaminase Ab IgG <1.0 U/mL; Transglutaminase IgA <1.0 U/mL
[2023-03-19 10:38] LABS: Anti Nuclear Antibody Screen NEGATIVE (NEGATIVE)
== END 2023-03-12 10:37 | disposition home or self-care (01) | DRG 244 ==
LOC: HO.ED 15:14 → HO.EDOVER 15:33 → HO.S3 16:55
PROVIDERS: Internal Medicine Gastroenterology; Physician Assistant; Admitting Provider Nurse Practitioner Acute Care; Emergency Provider Emergency Medicine Emergency Medical Services; PCP Physician Assistant; Visit Provider Nurse Practitioner Acute Care
PROC: 0DJD8ZZ Inspection of Lower Intestinal Tract, Via Natural or Artificial Opening Endoscopic (ICD-10-PCS; CPT 45330; principal; 2023-03-11 15:10)
DX: K57.30 Diverticulosis of large intestine without perforation or abscess without bleeding (principal); F17.290 Nicotine dependence, other tobacco product, uncomplicated; K64.8 Other hemorrhoids; N40.0 Benign prostatic hyperplasia without lower urinary tract symptoms; R73.03 Prediabetes; Z71.6 Tobacco abuse counseling; Z79.899 Other long term (current) drug therapy
CPT/HCPCS: 45331; 36415; 71045; 74177; 80048; 80053; 80307; 81001; 82550; 82947; 83605; 83690; 83735; 84484; 85025; 85027; 86038; 86140; 86364; 87040; 88305; 93005; 99221; 99284; J1170; J1650; J2270; J2405; J2543; Q9967

== ENCOUNTER → 2023-03-10 10:50 | Outpatient (BNV) | payer OTHER, SELFPAY | PROVIDERS: Admitting Provider Nurse Practitioner Acute Care; Emergency Provider Emergency Medicine Emergency Medical Services; Visit Provider Internal Medicine Cardiovascular Disease | DX: R10.9 Unspecified abdominal pain (principal) | CPT/HCPCS: 93010 ==

== ENCOUNTER → 2023-03-10 15:22 | Outpatient (BNV) | payer OTHER, SELFPAY | PROVIDERS: Admitting Provider Nurse Practitioner Acute Care; Emergency Provider Emergency Medicine Emergency Medical Services; Visit Provider Surgery | DX: R10.9 Unspecified abdominal pain (principal); E86.0 Dehydration | CPT/HCPCS: 99283 ==

== ENCOUNTER → 2023-03-10 15:22 | Outpatient (BNV) | payer OTHER, SELFPAY | PROVIDERS: Admitting Provider Nurse Practitioner Acute Care; Emergency Provider Emergency Medicine Emergency Medical Services; PCP Physician Assistant; Visit Provider Internal Medicine Gastroenterology | DX: K52.9 Noninfective gastroenteritis and colitis, unspecified (principal); R93.5 Abnormal findings on diagnostic imaging of other abdominal regions, including retroperitoneum; K57.30 Diverticulosis of large intestine without perforation or abscess without bleeding; K64.8 Other hemorrhoids | CPT/HCPCS: 45331; 99232 ==

== ENCOUNTER → 2023-03-10 15:22 | Outpatient (BNV) | payer OTHER, SELFPAY | PROVIDERS: Admitting Provider Nurse Practitioner Acute Care; Emergency Provider Emergency Medicine Emergency Medical Services; Visit Provider Nurse Practitioner Acute Care | DX: R19.7 Diarrhea, unspecified (principal); R93.5 Abnormal findings on diagnostic imaging of other abdominal regions, including retroperitoneum | CPT/HCPCS: 99223; 99232; 99239 ==